=== PATIENT | female | born 1955 | race Caucasian/White ===

== ENCOUNTER → 2018-04-25 09:16 | Outpatient (CLI) | payer OTHER, SELFPAY ==
--- NOTE | 2018-04-25 | DI.US.S_ITS ---
PROCEDURE: US PELVIC COMPLETE INDICATIONS: IMPAIRED FASTING GLUCOSE,GOITER, VAGINAL FISTULA TECHNIQUE: Real-time scanning was performed of the pelvic organs, with image documentation. Additional endovaginal scanning was necessary due to incomplete visualization of the adnexal and endometrial structures by transabdominal scanning. COMPARISON: None. FINDINGS: Transabdominal scanning: Limited scanning through the kidneys shows no hydronephrosis. No pathologic free abdominal or pelvic fluid. Endovaginal scanning: Uterus: Uterus is normal in size at 8.4 x 2.5 x 3.3 cm. The endometrium measures 4.7 mm in combined thickness. There is a phlegmon fluid within the endometrial cavity. Multiple nabothian cysts are present with the largest one measuring 1.9 cm. Ovaries: Right ovary measures 2.3 x 1.9 x 2.1 cm. Left ovary measures 5.6 x 3.0 x 2.2 cm. There is a large cyst with internal septation measuring 5.6 x 3.0 x 3.2 cm. IMPRESSION: 1. Trace amount of fluid within the endometrial cavity. Endometrium thickness is within normal limits (4.7 mm in combined thickness). 2. There is a 5.6 x 3.0 x 3.2 cm complex cyst in the left ovary with internal septa. Differential diagnosis includes benign versus malignant ovarian neoplasm. Recommend gynecological follow up. 3. No pathological fluid in pelvis. Dictated by: Leonie Munguia M.D. on 04/25/2018 at 17:19 Approved by: Leonie Munguia M.D. on 04/25/2018 at 17:25
--- NOTE | 2018-04-25 | DI.US.S_ITS ---
PROCEDURE: US THYROID INDICATIONS: IMPAIRED FASTING GLUCOSE,GOITER, VAGINAL FISTULA TECHNIQUE: Real-time scanning was performed of the thyroid gland, with image documentation. COMPARISON: None. FINDINGS: Right: Thyroid lobe measures 5.1 x 2.2 x 2.4 cm, and is homogeneous in echotexture. Left: Thyroid lobe measures 3.6 x 1.4 x 1.1 cm, and is homogenous in echotexture. Isthmus: 2 mm thick. Nodule number: 1 Location: Right superior lobe Size: 1.1 x 0.8 x 1.1 cm. Composition: Solid Echogenicity: Hypoechoic Shape: wider than tall. Margins: Smooth Echogenic foci: None Total points: 4 ACR TI-RADS category: 4 Nodule number: 2 Location: Right middle lobe Size: 0.8 x 0.5 x 0.8 cm. Composition: Solid Echogenicity: Hypoechoic Shape: wider than tall. Margins: Smooth Echogenic foci: None Total points: 4 ACR TI-RADS category: 4 Nodule number: 3 Location: Right inferior lobe Size: 2.0 x 2.5 x 2.0 cm. Composition: Solid Echogenicity: Hypoechoic Shape: wider than tall. Margins: Smooth Echogenic foci: None Total points: 4 ACR TI-RADS category: 4 Nodule number: 4 Location: Left mid Size: 0.7 x 0.5 x 0.7 cm. Composition: Solid Echogenicity: Hypoechoic Shape: wider than tall. Margins: Smooth Echogenic foci: None Total points: 4 ACR TI-RADS category: 4 IMPRESSION: 1. Multiple lesions all category 4. 2. Lesions 2 and 4 are both below the threshold for followup as recommended below. 3. Lesion 3: FNA recommended. 4. Lesion one interval followup at one, 2, 3 and 5 years as below. ACR TI-RADS definitions and recommendations: TI-RADS 1 (benign): 0 points. FNA not needed. TI-RADS 2 (not suspicious): 2 points. FNA not needed. TI-RADS 3 (mildly suspicious): 3 points. * FNA if 2.5 cm or larger, follow up if 1.5 cm or larger (at 1, 3, and 5 years). TI-RADS 4 (moderately suspicious): 4-6 points. * FNA if 1.5 cm or larger, follow up if 1 cm or larger (at 1, 2, 3, and 5 years). TI-RADS 5 (highly suspicious): 7 points or more. * FNA if 1 cm or larger, follow up if 0.5 cm or larger (every year for 5 years). Dictated by: Coty Olvera M.D. on 04/25/2018 at 17:44 Approved by: Coty Olvera M.D. on 04/25/2018 at 17:48
== END ==
PROVIDERS: Visit Provider Internal Medicine
DX: N82.3 Fistula of vagina to large intestine (principal); N83.292 Other ovarian cyst, left side; N88.8 Other specified noninflammatory disorders of cervix uteri; R73.01 Impaired fasting glucose; E04.2 Nontoxic multinodular goiter
CPT/HCPCS: 76536; 76830; 76856

== ENCOUNTER → 2018-05-13 11:17 | Outpatient (CLI) | payer OTHER, SELFPAY ==
--- NOTE | 2018-05-13 | DI.MG.S_ITS ---
BILATERAL DIGITAL SCREENING MAMMOGRAM 3D/2D WITH CAD: 05/13/2018 CLINICAL: Routine screening. Comparison is made to exams dated: 04/23/2016 mammogram, 03/17/2015 mammogram, and 03/28/2013 mammogram - [facility]. There are scattered fibroglandular elements in both breasts. Current study was also evaluated with a Computer Aided Detection (CAD) system. No significant masses, calcifications, or other findings are seen in either breast. There has been no significant interval change. IMPRESSION: NEGATIVE There is no mammographic evidence of malignancy. A 1 year screening mammogram is recommended. This exam was interpreted at Station ID: [id number]. NOTE: For mammograms, a report in lay terms will be sent to the patient. Approximately 15% of breast malignancies will not be visualized mammographically. In the management of a palpable breast mass, a negative mammogram must not discourage biopsy of a clinically suspicious lesion. Electronically Signed By: Mikey brizuela/kai:05/15/2018 10:21:28 letter sent: Normal Exam ACR BI-RADS Category 1: Negative [id number]
== END ==
PROVIDERS: PCP Internal Medicine; Visit Provider Internal Medicine
DX: Z12.31 Encounter for screening mammogram for malignant neoplasm of breast (principal)
CPT/HCPCS: 77063; 77067

== ENCOUNTER → 2020-03-21 19:05 | Outpatient (ROUT) | payer MEDICARE, OTHER, SELFPAY ==
[2020-03-21 19:33] LABS: Add Manual Diff / Slide Review NO; Basophils Absolute Auto 100 /uL (0-100); Eosinophils Absolute Auto 200 /uL (0-450); Eosinophils Percent Auto 2.2 % (2-4); Hematocrit 45.1 % (36-46); Hemoglobin 15.3 g/dL (12.0-16.0); Lymphocytes Absolute Auto 2600 /uL (1100-4500); Lymphocytes Percent Auto 30.2 % (25-40); Mean Corpuscular HGB Conc 33.9 % (30-36); Mean Corpuscular Volume 94.5 fL (80-100); Monocytes Absolute Auto 800 /uL (0-900); Monocytes Percent Auto 9.3 % (3-14); Neutrophils Absolute Auto 4900 /uL (1500-7000); Neutrophils Percent Auto 57.3 % (50-75); Platelet Count 340 X10^3/uL (150-400); Red Blood Cell Count 4.77 X10^6/uL (4.0-5.2); Red Cell Distribution Width 13.1 % (11.6-14.8); White Blood Cell Count 8.5 X10^3/uL (4.5-11.0)
[2020-03-21 19:47] LABS: Aspartate Aminotransferase 55 IU/L (14-36); BUN Creatinine Ratio 21.1 (6-22); Blood Urea Nitrogen 12 mg/dL (7-17); Calcium 9.4 mg/dL (8.4-10.2); Carbon Dioxide 27 mmol/L (22-32); Chloride 104 mmol/L (98-107); Cholesterol 262 mg/dL (140-199); Estimated Glomerular Filt Rate > 60.0 mL/min (>60); Glucose 91 mg/dL (80-110); HDL Cholesterol 47 mg/dL (40-60); HEMOLYSIS < 15 (0-50); LDL Cholesterol Calculated 170 mg/dL (<100); Potassium 4.3 mmol/L (3.4-5.1); Sodium 135 mmol/L (137-145); Triglycerides 223 mg/dL (35-150)
[2020-03-21 19:49] LABS: Hemoglobin A1C% w Est Avg Glu 6.4 % (4.0-6.0)
[2020-03-21 20:15] LABS: TSH w/ Reflex to FT4 0.72 uIU/mL (0.47-4.68)
== END ==
PROVIDERS: PCP Internal Medicine; Visit Provider Internal Medicine
DX: I10 Essential (primary) hypertension (principal); E78.2 Mixed hyperlipidemia; R73.01 Impaired fasting glucose
CPT/HCPCS: 80048; 80061; 83036; 84443; 84450; 85025

== ENCOUNTER → 2020-04-09 10:00 | Outpatient (CLI) | payer MEDICARE, OTHER, SELFPAY ==
--- NOTE | 2020-04-09 | DI.US.S_ITS ---
PROCEDURE: US THYROID INDICATIONS: NONTOXIC GOITER TECHNIQUE: Real-time scanning was performed of the thyroid gland, with image documentation. COMPARISON: Outside Facility, RG, US RT THYROID BIOPSY, 03/31/2015, 15:16. [facility], US, US THYROID, 04/25/2018, 10:25. FINDINGS: Right: Thyroid lobe measures 5.2 x 3.0 x 2.2 cm, and is homogeneous in echotexture. Left: Thyroid lobe measures 4.7 x 1.2 x 1.3 cm, and is homogenous in echotexture. Isthmus: 3.8 mm thick. Nodule number: 1 Location: Right superior Size: 1.1 x 0.7 x 0.9 cm compared to 1.1 x 0.8 x 1.1 cm. Composition: Solid Echogenicity: Hypoechoic Shape: wider than tall. Margins: Smooth Echogenic foci: None Total points: 4 ACR TI-RADS category: 4 Nodule number: 2 Location: Right mid lobe Size: 0.7 x 0.4 x 0.6 cm compared to 0.8 x 0.5 x 0.8 cm. Composition: Solid Echogenicity: Hypoechoic Shape: wider than tall. Margins: Smooth Echogenic foci: None Total points: 4 ACR TI-RADS category: 4 Nodule number: 3 Location: Right inferior Size: 2.6 x 2.5 x 1.9 cm compared to 2.7 x 2.5 x 2.0 cm. Composition: Solid Echogenicity: Hypoechoic Shape: wider than tall. Margins: Smooth Echogenic foci: None Total points: 4 ACR TI-RADS category: 4 Nodule number: 4 Location: Left mid Size: 0.8 x 0.5 x 0.9 cm compared to 0.7 x 0.5 x 0.7 cm. Composition: Solid Echogenicity: Hypoechoic Shape: wider than tall. Margins: Smooth Echogenic foci: None Total points: 4 ACR TI-RADS category: 4 IMPRESSION: 1. Stable category 4 lesions compared to prior exam. It is noted the right inferior lesion was biopsied in 2015. Otherwise, recommend interval follow-up as below based on size. ACR TI-RADS definitions and recommendations: TI-RADS 1 (benign): 0 points. FNA not needed. TI-RADS 2 (not suspicious): 2 points. FNA not needed. TI-RADS 3 (mildly suspicious): 3 points. * FNA if 2.5 cm or larger, follow up if 1.5 cm or larger (at 1, 3, and 5 years). TI-RADS 4 (moderately suspicious): 4-6 points. * FNA if 1.5 cm or larger, follow up if 1 cm or larger (at 1, 2, 3, and 5 years). TI-RADS 5 (highly suspicious): 7 points or more. * FNA if 1 cm or larger, follow up if 0.5 cm or larger (every year for 5 years). Dictated by: Coty Olvera M.D. on 04/09/2020 at 13:17 Approved by: Coty Olvera M.D. on 04/09/2020 at 13:21
== END ==
PROVIDERS: PCP Internal Medicine; Referring Provider Internal Medicine; Visit Provider Internal Medicine
DX: E04.2 Nontoxic multinodular goiter (principal)
CPT/HCPCS: 76536

== ENCOUNTER → 2020-05-20 18:39 | Outpatient (ROUT) | payer MEDICARE, OTHER, SELFPAY ==
[2020-05-20 19:19] LABS: Add Manual Diff / Slide Review NO; Basophils Absolute Auto 100 /uL (0-100); Basophils Percent Auto 0.7 % (0-2); Eosinophils Absolute Auto 200 /uL (0-450); Hematocrit 44.3 % (36-46); Hemoglobin 15.4 g/dL (12.0-16.0); Lymphocytes Absolute Auto 2300 /uL (1100-4500); Lymphocytes Percent Auto 28.6 % (25-40); Mean Corpuscular HGB Conc 34.7 % (30-36); Mean Corpuscular Hemoglobin 33.1 PG (26-34); Mean Corpuscular Volume 95.4 fL (80-100); Monocytes Absolute Auto 700 /uL (0-900); Monocytes Percent Auto 8.9 % (3-14); Neutrophils Absolute Auto 4800 /uL (1500-7000); Neutrophils Percent Auto 58.8 % (50-75); Platelet Count 305 X10^3/uL (150-400); Red Blood Cell Count 4.64 X10^6/uL (4.0-5.2); Red Cell Distribution Width 13.2 % (11.6-14.8); White Blood Cell Count 8.1 X10^3/uL (4.5-11.0)
[2020-05-20 19:32] LABS: Prothrombin Time 11.5 SECONDS (10.1-12.7)
[2020-05-20 19:34] LABS: Alanine Aminotransferase 63 IU/L (<35); Albumin 4.2 g/dL (3.5-5.0); Albumin Globulin Ratio 1.6 (1.0-2.8); Alkaline Phosphatase 87 U/L (38-126); Aspartate Aminotransferase 48 IU/L (14-36); BUN Creatinine Ratio 19.4 (6-22); Bilirubin Total 0.4 mg/dL (0.2-1.3); Blood Urea Nitrogen 13 mg/dL (7-17); Calcium 9.8 mg/dL (8.4-10.2); Carbon Dioxide 26 mmol/L (22-32); Chloride 104 mmol/L (98-107); Estimated Glomerular Filt Rate > 60.0 mL/min (>60); Globulin 2.7 g/dL (1.7-4.1); Glucose 141 mg/dL (80-110); HEMOLYSIS < 15 (0-50); Iron 89 ug/dL (37-170); Potassium 4.5 mmol/L (3.4-5.1); Sodium 138 mmol/L (137-145); Total Protein 6.9 g/dL (6.3-8.2)
[2020-05-20 19:47] LABS: Percent Iron Saturation 30 % (15-50); Total Iron Binding Capacity 292 ug/dL (265-497); Transferrin 248 mg/dL (206-381)
== END ==
PROVIDERS: PCP Internal Medicine; Visit Provider Internal Medicine
DX: D50.9 Iron deficiency anemia, unspecified (principal); R39.9 Unspecified symptoms and signs involving the genitourinary system; M19.90 Unspecified osteoarthritis, unspecified site; D68.9 Coagulation defect, unspecified
CPT/HCPCS: 80053; 83540; 83550; 85025; 85610; 87086

== ENCOUNTER 2021-06-30 15:09 | Emergency (ER) | payer MEDICARE, OTHER, SELFPAY ==
[2021-06-30] VITALS (35 sets, daily range): BP systolic 138–250; BP diastolic 64–114; PULSE 58–77; RESP 17–39; TEMP 36.4; O2SAT 92–100; BMI 42.9
--- NOTE | 2021-06-30 15:26 | DI.RAD.S_ITS ---
PROCEDURE: XR HUMERUS LT 2V INDICATIONS: direct blow TECHNIQUE: 2 views of the humerus were acquired. COMPARISON: None. FINDINGS: Bones: There is anterior dislocation of the glenohumeral joint. The humeral head appears to be infected at the anteroinferior glenoid. No definite displaced fracture is seen. Staj-us-jjogrhwr degenerative changes of the acromioclavicular joint. No suspicious bony lesions. Soft tissues: No suspicious soft tissue calcifications. IMPRESSION: Anterior dislocation of the glenohumeral joint. Recommend correlation with postreduction radiographs. Dictated by: Spike Lan M.D. on 06/30/2021 at 16:13 Approved by: Spike Lan M.D. on 06/30/2021 at 16:14
[2021-06-30] MEDS: ONDANSETRON 4 MG ODT SL (15:36)
[2021-06-30] MEDS: OXYCODONE/ACETAMINOPHEN 5/325 TABLET 2 TAB PO (15:36)
--- NOTE | 2021-06-30 16:47 | ED_ITS ---
HPI - Extremity Injury (Upper) <Miguel Lovell PA-C - Last Filed: 06/30/21 18:04> General Chief Complaint: Extremity Injury, Upper Stated Complaint: lt shoulder injury s/p fall Time Seen by Provider: 06/30/21 16:03 Source: patient Mode of arrival: Wheelchair History of Present Illness HPI narrative: Patient is a 66-year-old female who presents to the ED complaining of left shoulder pain. She states that she fell while outside and landed on her left shoulder. She has had extreme pain and difficulty with mobility since then. Incident happened an hour prior to arrival. No reported loss conscious no other complaint reported x-ray of the left shoulder was performed and was identified as dislocation. Related Data Home Medications Medication Instructions Recorded Confirmed Saccharomyces boulardii 250 mg 250 mg PO BID 05/21/20 04/29/21 capsule (Daily Probiotic (S. boulardii)) dorzolamide 22.3 mg-timolol 6.8 1 drp EYE-BOTH BID 05/21/20 04/29/21 mg/mL eye drops multivitamin 1 tab PO DAILY 05/21/20 04/29/21 omega-3 fatty acids 1,250 mg 2,500 mg PO DAILY 05/21/20 04/29/21 capsule ResMed AirSense 10 Auto 04/29/21 04/29/21 Allergies Allergy/AdvReac Type Severity Reaction Status Date / Time Penicillins Allergy Mild Verified 04/29/21 10:45 Review of Systems <Miguel Lovell PA-C - Last Filed: 06/30/21 18:04> Review of Systems ROS Unobtainable: All systems reviewed & are unremarkable except as noted in HPI and below Constitutional Constitutional: Denies chills, Denies fatigue, Denies fever(s), Denies frequent falls, Denies lethargy and Denies weakness Eyes Eyes: Denies change in vision, Denies eye discharge, Denies irritation and Denies loss of vision ENT Ears, Nose, Mouth, and Throat: Denies change in voice, Denies dizziness, Denies neck pain, Denies sore throat and Denies throat swelling Cardiovascular Cardiovascular: Denies chest pain, Denies irregular heart rhythm, Denies lightheadedness, Denies palpitations, Denies dyspnea, Denies dyspnea on exertion and Denies orthopnea Respiratory Respiratory: Denies cough, Denies dyspnea, Denies dyspnea on exertion and Denies wheezing Gastrointestinal Gastrointestinal: Denies abdominal pain, Denies change in bowel habits, Denies diarrhea, Denies nausea and Denies vomiting Genitourinary Genitourinary: Denies hematuria, Denies flank pain, Denies urinary incontinence and Denies urinary urgency Musculoskeletal Musculoskeletal: Denies back pain, Reports deformity, Reports arthralgias, Denies muscle weakness, Denies neck pain, Denies numbness and Denies tingling Integumentary/Breasts Skin/Breast: Denies pruritus, Denies erythema, Denies rash and Denies wounds Neurologic Neurologic: Denies behavioral changes, Denies confusion, Denies dizziness, Denies frequent falls, Denies loss of vision, Denies numbness, Denies tingling and Denies weakness Psychiatric Psychiatric: Denies anxiety, Denies behavioral changes, Denies confusion, Denies depression, Denies homicidal ideation and Denies suicidal ideation Endocrine Endocrine: Denies fatigue, Denies flushing and Denies palpitations Hematologic/Lymphatic Hematologic/Lymphatic: Denies easy bruising Allergic/Immunologic Allergic/Immunologic: Denies urticaria, Denies throat swelling and Denies wheezing Patient History <Miguel Lovell PA-C - Last Filed: 06/30/21 18:04> Medical History Multinodular non-toxic goiter Obesity (BMI 30-39.9) (Unknown) Obstructive sleep apnea, adult (~2010) Osteoarthritis, hip, bilateral Surgical History History of right hip replacement Family History Mother Hypertension Heart disease Brother Sleep apnea Hypertension Social History Smoking Status: Never smoker Smoking Status: Never smoker Substance Use Type: does not use Exam <Miguel Lovell PA-C - Last Filed: 06/30/21 18:04> Initial Vital Signs Initial Vital Signs: Vital Signs Temperature 97.6 F 06/30/21 15:23 Pulse Rate 65 06/30/21 15:23 Respiratory Rate 24 06/30/21 15:23 Blood Pressure 224/99 H 06/30/21 15:23 Pulse Oximetry 99 06/30/21 15:23 Oxygen Delivery Method 06/30/21 15:23 Const General: cooperative, healthy appearing, comfortable and well developed Nutritional Appearance: average body habitus and well nourished Orientation: Orientation [facility] Head: normal to inspection, normocephalic and atraumatic Ears: hearing grossly normal bilaterally and external ears normal Nose: external nose normal and nares normal Face and sinus: normal facial exam Mouth: oral mucosae normal Teeth and gingiva: dentition normal Resp Effort & Inspection: normal respiratory effort and able to speak in complete sentences Auscultation: clear to auscultation bilaterally Extrem Left upper extremity: shoulder/upper arm Details: abnormal ROM (Unable to externally rotate) <Blaine Anderson MD - Last Filed: 08/07/21 01:47> Initial Vital Signs Initial Vital Signs: Vital Signs Temperature 97.6 F 06/30/21 15:23 Pulse Rate 65 06/30/21 15:23 Respiratory Rate 24 06/30/21 15:23 Blood Pressure 224/99 H 06/30/21 15:23 Pulse Oximetry 99 06/30/21 15:23 Oxygen Delivery Method 06/30/21 15:23 Procedures <Miguel Lovell PA-C - Last Filed: 06/30/21 18:04> Orthopedic Joint Reduction Joint #1: Time of procedure: 17:30 Time Out Performed: Yes Side: left Joint Reduction Location: shoulder Analgesia: procedural sedation Shoulder Technique Used (if applicable): traction/counter-traction Technique used: traction/counter-traction Post-reduction neuro exam: intact and no change Post-reduction vascular: intact and no change Post Reduction X-Ray Obtained: Yes Post Reduction X-Ray Results: reduced Splint Applied: Yes Patient Tolerated Procedure: Well and No complications Procedural Sedation Time of procedure: 17:18 Consent signed: Yes Time out performed: Yes Indication: fracture/dislocation reduction ASA Class: I Mallampati Airway Classification: Class I Time of Last PO Intake: 11:00 Preparation: laboratory monitor applied, pulse oximeter, capnometry used, supplemental O2 applied, reversal agents at bedside, suction/airway equipment at bedside and IV secured IV Etomidate dose (mg): 20 ED Sedation Level: Moderate (Concious) Patient Tolerated Procedure: Well and No complications Complications: none Course <Miguel Lovell PA-C - Last Filed: 06/30/21 18:04> Orders Ordered: Discontinued Medications Etomidate (Etomidate 2 Mg/Ml 10 Ml Vial) 11.3 mg 0.1 mg/kg (11.3 mg) IV NOW ONE Stop: 06/30/21 16:47 Last Admin: 06/30/21 17:36 Dose: 11.3 mg Documented By: NR Sodium Chloride (Normal Saline 0.9%) 1,000 mls @ 150 mls/hr IV CONT KALYANI Last Admin: 06/30/21 17:11 Dose: 150 mls/hr Documented By: NR Ondansetron HCl (Ondansetron 4 Mg Odt) 4 mg SL NOW ONE Stop: 06/30/21 15:34 Last Admin: 06/30/21 15:36 Dose: 4 mg Documented By: NORTH Oxycodone/Acetaminophen (Oxycodone/Acetaminophen 5/325 Tablet) 2 tab PO NOW ONE Stop: 06/30/21 15:32 Last Admin: 06/30/21 15:36 Dose: 2 tab Documented By: NORTH Vital Signs Vital signs: Vital Signs - 8 hr 06/30/21 15:23 06/30/21 16:07 06/30/21 16:08 Temperature 97.6 F Pulse Rate 65 63 63 Respiratory Rate 24 Blood Pressure 224/99 H 249/111 H Pulse Oximetry 99 98 98 06/30/21 16:10 06/30/21 16:18 06/30/21 16:20 Temperature Pulse Rate 61 61 61 Respiratory Rate Blood Pressure Pulse Oximetry 99 99 100 06/30/21 16:25 06/30/21 16:30 06/30/21 16:35 Temperature Pulse Rate 60 61 60 Respiratory Rate Blood Pressure Pulse Oximetry 100 99 100 06/30/21 16:40 06/30/21 16:45 06/30/21 16:50 Temperature Pulse Rate 60 62 58 L Respiratory Rate Blood Pressure Pulse Oximetry 100 99 100 06/30/21 16:55 06/30/21 17:00 06/30/21 17:02 Temperature Pulse Rate 64 70 64 Respiratory Rate 28 H 35 H 26 H Blood Pressure 250/114 H Pulse Oximetry 100 99 99 06/30/21 17:05 06/30/21 17:09 06/30/21 17:10 Temperature Pulse Rate 62 65 65 Respiratory Rate 33 H 30 H 30 H Blood Pressure 244/108 H Pulse Oximetry 100 100 100 06/30/21 17:13 06/30/21 17:15 06/30/21 17:20 Temperature Pulse Rate 61 61 65 Respiratory Rate 22 29 H 33 H Blood Pressure 244/108 H Pulse Oximetry 100 100 100 06/30/21 17:21 06/30/21 17:25 06/30/21 17:30 Temperature Pulse Rate 71 77 76 Respiratory Rate 18 39 H 26 H Blood Pressure 238/108 H 217/104 H Pulse Oximetry 100 93 97 06/30/21 17:33 06/30/21 17:35 06/30/21 17:40 Temperature Pulse Rate 74 68 Respiratory Rate 18 21 32 H Blood Pressure 188/78 H Pulse Oximetry 92 94 06/30/21 17:41 06/30/21 17:45 Temperature Pulse Rate 69 68 Respiratory Rate 32 H 31 H Blood Pressure 150/65 H 150/68 H Pulse Oximetry 97 95 <Blaine Anderson MD - Last Filed: 08/07/21 01:47> Orders Ordered: Discontinued Medications Etomidate (Etomidate 2 Mg/Ml 10 Ml Vial) 11.3 mg 0.1 mg/kg (11.3 mg) IV NOW ONE Stop: 06/30/21 16:47 Last Admin: 06/30/21 17:36 Dose: 11.3 mg Documented By: LARISSA Sodium Chloride (Normal Saline 0.9%) 1,000 mls @ 150 mls/hr IV CONT KALYANI Last Admin: 06/30/21 17:11 Dose: 150 mls/hr Documented By: LARISSA Ondansetron HCl (Ondansetron 4 Mg Odt) 4 mg SL NOW ONE Stop: 06/30/21 15:34 Last Admin: 06/30/21 15:36 Dose: 4 mg Documented By: NORTH Oxycodone/Acetaminophen (Oxycodone/Acetaminophen 5/325 Tablet) 2 tab PO NOW ONE Stop: 06/30/21 15:32 Last Admin: 06/30/21 15:36 Dose: 2 tab Documented By: NORTH Vital Signs Vital signs: Vital Signs - 8 hr 06/30/21 15:23 06/30/21 16:07 06/30/21 16:08 Temperature 97.6 F Pulse Rate 65 63 63 Respiratory Rate 24 Blood Pressure 224/99 H 249/111 H Pulse Oximetry 99 98 98 06/30/21 16:10 06/30/21 16:18 06/30/21 16:20 Temperature Pulse Rate 61 61 61 Respiratory Rate Blood Pressure Pulse Oximetry 99 99 100 06/30/21 16:25 06/30/21 16:30 06/30/21 16:35 Temperature Pulse Rate 60 61 60 Respiratory Rate Blood Pressure Pulse Oximetry 100 99 100 06/30/21 16:40 06/30/21 16:45 06/30/21 16:50 Temperature Pulse Rate 60 62 58 L Respiratory Rate Blood Pressure Pulse Oximetry 100 99 100 06/30/21 16:55 06/30/21 17:00 06/30/21 17:02 Temperature Pulse Rate 64 70 64 Respiratory Rate 28 H 35 H 26 H Blood Pressure 250/114 H Pulse Oximetry 100 99 99 06/30/21 17:05 06/30/21 17:09 06/30/21 17:10 Temperature Pulse Rate 62 65 65 Respiratory Rate 33 H 30 H 30 H Blood Pressure 244/108 H Pulse Oximetry 100 100 100 06/30/21 17:13 06/30/21 17:15 06/30/21 17:20 Temperature Pulse Rate 61 61 65 Respiratory Rate 22 29 H 33 H Blood Pressure 244/108 H Pulse Oximetry 100 100 100 06/30/21 17:21 06/30/21 17:25 06/30/21 17:30 Temperature Pulse Rate 71 77 76 Respiratory Rate 18 39 H 26 H Blood Pressure 238/108 H 217/104 H Pulse Oximetry 100 93 97 06/30/21 17:33 06/30/21 17:35 06/30/21 17:40 Temperature Pulse Rate 74 68 Respiratory Rate 18 21 32 H Blood Pressure 188/78 H Pulse Oximetry 92 94 06/30/21 17:41 06/30/21 17:45 Temperature Pulse Rate 69 68 Respiratory Rate 32 H 31 H Blood Pressure 150/65 H 150/68 H Pulse Oximetry 97 95 MDM - Extremity Injury (Upper) <Miguel Lovell PA-C - Last Filed: 06/30/21 18:04> Differential Diagnosis Differential diagnosis: Likely dislocation of shoulder Lab Data Labs: Point of Care Testing Test Results Negative Imaging Data Extremity x-ray #1: Radiologist's Impression: [address] [address] XRay Report Signed Patient: Kanchan Cadet MR#: [id number] : 1955 Acct:[id number] Age/Sex: 66 / F Date of Service: 06/30/21 Loc: ED Accession Number: [id number] ?? Procedure: XR humerus LT 2V Ordering Provider: Blaine Anderson MD PROCEDURE:? XR HUMERUS LT 2V ? INDICATIONS:? direct blow ? TECHNIQUE:? 2 views of the humerus were acquired.? ? COMPARISON:? None. ? FINDINGS:? ? Bones:? There is anterior dislocation of the glenohumeral joint.? The humeral head appears to be infected at the anteroinferior glenoid.? No definite displaced fracture is seen.? Hqru-ps-rsufvzaj degenerative changes of the acromioclavicular joint.? No suspicious bony lesions.? ? Soft tissues:? No suspicious soft tissue calcifications.? ? IMPRESSION:? Anterior dislocation of the glenohumeral joint.? Recommend correlation with postreduction radiographs. ? ? Dictated by: Spike Lan M.D. on 06/30/2021 at 16:13 ? ? Approved by: Spike Lan M.D. on 06/30/2021 at 16:14?? Extremity x-ray #2: Radiologist's Impression: [address] [address] XRay Report Signed Patient: Kanchan Cadet MR#: [id number] : 1955 Acct:[id number] Age/Sex: 66 / F Date of Service: 06/30/21 Loc: ED Accession Number: [id number] ?? Procedure: XR shoulder LT min 2V Ordering Provider: Miguel Lovell P.A-C PROCEDURE:? XR SHOULDER LT MIN 2V ? INDICATIONS:? post reduction ? TECHNIQUE:? 2 views of the shoulder were acquired.? ? COMPARISON:? [facility], , XR HUMERUS LT 2V, 06/30/2021, 15:16. ? FINDINGS:? ? Bones:? There is been interval reduction with now good anatomic alignment of previous dislocation.? No distinct fracture is identified. ? Soft tissues:? No suspicious soft tissue calcifications.? ? IMPRESSION:? Interval reduction of previous anterior dislocation without visualized fracture. ? ? Dictated by: Coty Olvera M.D. on 06/30/2021 at 16:44? ?? [facility] Narrative Medical decision making narrative: Patient was evaluated today for a left shoulder pain which was found to be dislocated without evidence of fracture. Patient underwent conscious sedation with counter traction applied and reduction was achieved of the left shoulder. Post reduction x-ray shows good placement with arthritic changes. Patient was placed in a shoulder immobilizer. Patient will be monitored and wants regain consciousness and vital signs remained stable patient will be discharged home. Patient should follow-up with orthopedic for further evaluation and treatment. <Blaine Anderson MD - Last Filed: 08/07/21 01:47> Lab Data Labs: Point of Care Testing Test Results Negative Discharge Plan Departure Patient Disposition: Home Clinical Impression: Dislocation of shoulder region Instructions: DI for Shoulder Dislocation Activity Restrictions/Additional Instructions: You were seen today for your left shoulder dislocation. We were successful in putting her shoulder back in place however due to the extent of the injuries we would recommend that you follow-up with an system support specialist just to monitor the shoulder. You can keep the left arm in the sling for comfort and remove as needed for bathing or showering or for sleeping. The packing he can return to the ED if symptoms seem to worsen or your pain gets worse. Prescriptions: No Action dorzolamide-timolol 22.3-6.8 mg/mL drops 1 drp EYE-BOTH BID multivitamin Tablet 1 tab PO DAILY Saccharomyces boulardii [Daily Probiotic (S. boulardii)] 250 mg capsule 250 mg PO BID omega-3 fatty acids 1,250 mg capsule 2,500 mg PO DAILY (DME) ResMed AirSense 10 Auto See Rx Instructions .ROUTE .MEDSUPPLY Rx Instructions: CPAP Min: 10 Max: 14 DME: [facility] Referrals: Gilberto Vegas MD [Primary Care Provider] - <Blaine Anderson MD - Last Filed: 08/07/21 01:47> Cosign ED Attending Cosignature Attestation: I was immediately available in the department for consultation. ?This documentation has been reviewed and I agree with assessment and plan. Supervised by Blaine Anderson MD
[2021-06-30] MEDS: SODIUM CHLORIDE 0.9% 1,000 ML 150 ML IV (17:11)
--- NOTE | 2021-06-30 17:32 | DI.RAD.S_ITS ---
PROCEDURE: XR SHOULDER LT MIN 2V INDICATIONS: post reduction TECHNIQUE: 2 views of the shoulder were acquired. COMPARISON: , [facility], XR HUMERUS LT 2V, 06/30/2021, 15:16. FINDINGS: Bones: There is been interval reduction with now good anatomic alignment of previous dislocation. No distinct fracture is identified. Soft tissues: No suspicious soft tissue calcifications. IMPRESSION: Interval reduction of previous anterior dislocation without visualized fracture. Dictated by: Coty Olvera M.D. on 06/30/2021 at 16:44 Approved by: Coty Olvera M.D. on 06/30/2021 at 16:45
[2021-06-30] MEDS: ETOMIDATE 2 MG/ML 10 ML VIAL 11.3 MG IV (17:36)
== END 2021-06-30 18:31 | disposition home or self-care (01) ==
PROVIDERS: Emergency Provider Physician Assistant; PCP Internal Medicine
DX: S43.015A Anterior dislocation of left humerus, initial encounter (principal); W18.30XA Fall on same level, unspecified, initial encounter
CPT/HCPCS: 23650; 73030; 73060; 99152; 99284; 99285

== ENCOUNTER → 2021-07-15 15:50 | Outpatient (CLI) | payer MEDICARE, OTHER, SELFPAY ==
--- NOTE | 2021-07-15 | DI.MRI.S_ITS ---
PROCEDURE: MR SHOULDER LT WO CON INDICATIONS: Anterior dislocation of left humerus, initial encounter TECHNIQUE: Noncontrast oblique coronal T2 fast spin echo with fat saturation, oblique sagittal T1 spin echo and T2 fast spin echo with fat saturation, axial T1 spin echo and T2 fast spin echo with fat saturation through the shoulder. COMPARISON: [facility], CR, XR SHOULDER LT MIN 2V, 06/30/2021, 17:31. FINDINGS: Image quality: Excellent. Rotator cuff: There is full-thickness tearing of the supraspinatus and infraspinatus tendons with proximal tendon retraction measuring up to 4.8 cm, beyond the level of the glenoid rim. There is moderate atrophy and grade 2-3 fatty infiltration of the supraspinatus and infraspinatus muscles. Mild tendinosis of the infraspinatus tendon is seen. There is full-thickness tearing of the subscapularis tendon. Portions of the tendon appear to be retracted by up to 1.2 cm. There is grade 2 fatty infiltration of the superior subscapularis muscle. Mild edema within the medial subscapularis muscle may indicate a low-grade strain. Bones and bursae: No acute trabecular bone injury. The humeral head is high riding and abuts the undersurface of the acromion with mild degenerative changes at the acromial undersurface. Areas of high-grade and full-thickness cartilage loss are seen in both sides of the glenohumeral joint and there are small marginal osteophytes. Moderate degenerative changes are seen at the acromioclavicular joint with marginal osteophyte formation and mild subchondral edema. A small amount of subacromial/subdeltoid bursal fluid is seen communicating with the glenohumeral joint space. Capsule and soft tissues: There is mild diffuse labral degeneration. There is medial subluxation of the biceps long head tendon, located along the anterior aspect of the glenohumeral joint line. Biceps long head tendinosis is also noted. There is fatty infiltration of the rotator interval. The inferior glenohumeral ligaments are indistinct, especially at the midportion and near the humeral attachment. There is increased T2 signal within the axillary recess. IMPRESSION: 1. Full-thickness tearing of the supraspinatus and infraspinatus tendons with proximal tendon retraction beyond the level of the glenoid rim, measuring up to 4.8 cm. There is moderate atrophy and grade 2-3 fatty infiltration of the supraspinatus and infraspinatus muscles. The humeral head is high riding and abuts the undersurface of the acromion. 2. Full-thickness tearing of the subscapularis tendon with proximal retraction of portions of the tendon by up to 1.2 cm. Grade 2 fatty infiltration of the superior subscapularis muscle. 3. Tendinosis of the distal teres minor tendon. 4. Medial subluxation of the biceps long head tendon, located anterior to the glenohumeral joint line. There is superimposed biceps tendinosis. 5. Glenohumeral osteoarthrosis with areas of high-grade and full-thickness cartilage loss and marginal osteophyte formation. Circumferential labral degeneration. 6. Moderate acromioclavicular joint osteoarthrosis. 7. Inferior glenohumeral ligament fibers are not well seen and there is fluid within the axillary recess. Findings are suspicious for a prior capsular injury. 8. Subacromial/subdeltoid bursal fluid communicates with the glenohumeral joint space. Dictated by: Spike Lan M.D. on 07/16/2021 at 9:49 Approved by: Spike Lan M.D. on 07/16/2021 at 10:02
== END ==
PROVIDERS: PCP Internal Medicine; Referring Provider Physician Assistant; Visit Provider Physician Assistant
DX: S43.015A Anterior dislocation of left humerus, initial encounter (principal); M75.122 Complete rotator cuff tear or rupture of left shoulder, not specified as traumatic; S46.112A Strain of muscle, fascia and tendon of long head of biceps, left arm, initial encounter; M19.012 Primary osteoarthritis, left shoulder
CPT/HCPCS: 73221

== ENCOUNTER → 2021-10-15 06:58 | Outpatient (CLI) | payer MEDICARE, OTHER, SELFPAY ==
--- NOTE | 2021-10-15 07:00 | DI.ECHO.S_ITS ---
[place] +---------+ [facility] +---------+ : : [address] : : : : [id number] : : : : Phone: [phone]+ Echocardiogram Report + + :Name: BHAVANI NORMAN Study Date: 10/15/2021 Height: 64 in : :[facility] ReadingLocation: Weight: 245 lb : : Gender: Female BSA: 2.1 m2 : :: 1955 Age: 66 yrs BP: 172/88 mmHg: :Reason For Study: Abnormal ECG : :Ordering Physician: IZA, : :ORI Performed By: Isaak Vargas : :Referring: ORI COUCH : + + Interpretation Summary The left ventricle is normal in size and wall thickness. The ejection fraction is estimated to be 60-65%. MV E/A: 1.0 Med Peak E' Lino: 7.2 cm/sec E/E' med: 16.2. Suspect elevated filling pressure. The right ventricle is normal in size and function. No significant valvular pathology. The IVC is of normal diameter and collapses greater than 50% with a sniff. This suggests a low right atrial pressure of 3 mm Hg. Procedure: A two-dimensional transthoracic echocardiogram with color flow and Doppler was performed. The study quality was technically adequate. There is no prior echocardiogram noted for this patient. The patient was in normal sinus rhythm during the exam. Left Ventricle: The left ventricle is normal in size and wall thickness. There is no thrombus. Left ventricular systolic function is normal. The ejection fraction is estimated to be 60-65%. There are no focal wall motion abnormalities. MV E/A: 1.0 Med Peak E' Lino: 7.2 cm/sec E/E' med: 16.2. Suspect elevated filling pressure. Right Ventricle: The right ventricle is normal in size and function. Atria: Both atria are normal in size. The interatrial septum grossly appears intact with no obvious evidence for an atrial septal defect. The thickening of interatrial septum suggests lipomatous hypertrophy. Mitral Valve: There is mild mitral annular calcification. There is no mitral regurgitation noted. Aortic Valve: The aortic valve is trileaflet. The aortic valve opens well. The aortic valve is slightly calcified. There is no aortic valve stenosis. No aortic regurgitation is present. Tricuspid Valve: The tricuspid valve is normal in structure and function. There is trace tricuspid regurgitation. Pulmonary artery pressures cannot be estimated because of the lack of a measurable TR jet velocity. Pulmonic Valve: The pulmonic valve is not well seen, but is grossly normal. There is no pulmonic valvular regurgitation. Great Vessels: The aortic root is normal size. The dimensions of the ascending aorta are normal. The IVC is of normal diameter and collapses greater than 50% with a sniff. This suggests a low right atrial pressure of 3 mm Hg. Pericardium/ Pleura There is no pericardial effusion. There is an anterior echo-free space consistent with a fat pad. There is no pleural effusion. MMode/2D Measurements & Calculations LVIDd: 5.0 cm LVOT diam: 1.8 cm LVIDs: 3.3 cm Ao root diam: 2.5 cm FS: 34.0 % asc Aorta Diam: 3.1 cm IVSd: 0.90 cm LVPWd: 0.90 cm LV lovell. diameter/BSA (cm/m^2): 2.3 LV sys. diameter/BSA (cm/m^2): 1.5 LA dimension: 3.8 cm RA long axis: 5.6 cm LA A2 area: 18.6 cm2 IVC diam: 2.0 cm LA A4 area: 17.2 cm2 LA length (vol): 5.8 cm LA vol: 47.0 ml LA vol index: 22.0 ml/m2 TAPSE_phl: 2.4 cm Doppler Measurements & Calculations Ao V2 max: 202.0 cm/sec LVOT Max Lino: 143.0 cm/sec Ao V2 mean: 136.0 cm/sec LV V1 max P.2 mmHg Ao max P.0 mmHg LV V1 VTI: 36.7 cm Ao mean P.0 mmHg LEATHA(I,D): 2.0 cm2 Ao V2 VTI: 47.4 cm LEATHA(V,D): 1.8 cm2 sev ratio: 0.77 LEATHA indexed to BSA (cm^2/m^2): 0.92 MV E max lino: 116.0 cm/sec SV(LVOT): 93.4 ml MV A max lino: 111.0 cm/sec MV E/A: 1.0 Med Peak E' Lino: 7.2 cm/sec E/E' med: 16.2 Lat Peak E' Lino: 9.5 cm/sec E/E' lat: 12.2 E/e' average: 14.2 MV dec time: 0.23 sec AV VR_phl: 0.71 MV P1/2t-pr_phl: 68.0 msec LEATHA(VTI)/BSA_phl: 0.92 Reading Physician:09:41 AM
== END ==
PROVIDERS: PCP Internal Medicine; Referring Provider Internal Medicine; Visit Provider Internal Medicine
DX: R94.31 Abnormal electrocardiogram [ECG] [EKG] (principal)
CPT/HCPCS: 93306

== ENCOUNTER → 2022-03-04 09:16 | Outpatient (CLI) | payer MEDICARE, OTHER, SELFPAY ==
[2022-03-04 10:09] LABS: Hematocrit 44.3 % (36-46); Hemoglobin 14.9 g/dL (12.0-16.0); Mean Corpuscular HGB Conc 33.6 % (30-36); Mean Corpuscular Hemoglobin 32.1 PG (26-34); Mean Corpuscular Volume 95.4 fL (80-100); Platelet Count 298 X10^3/uL (150-400); Red Blood Cell Count 4.64 X10^6/uL (4.0-5.2); Red Cell Distribution Width 13.7 % (11.6-14.8); White Blood Cell Count 7.3 X10^3/uL (4.5-11.0)
[2022-03-04 10:27] LABS: Hemoglobin A1C% w Est Avg Glu 6.1 % (4.0-6.0)
[2022-03-04 10:40] LABS: Alanine Aminotransferase 72 IU/L (<35); Albumin 4.3 g/dL (3.5-5.0); Albumin Globulin Ratio 1.4 (1.0-2.8); Alkaline Phosphatase 100 U/L (38-126); Aspartate Aminotransferase 54 IU/L (14-36); BUN Creatinine Ratio 20.3 (6-22); Bilirubin Total 0.7 mg/dL (0.2-1.3); Blood Urea Nitrogen 13 mg/dL (7-17); Calcium 9.1 mg/dL (8.4-10.2); Carbon Dioxide 25 mmol/L (22-32); Chloride 103 mmol/L (98-107); Cholesterol 259 mg/dL (140-199); Estimated Glomerular Filt Rate > 60 mL/min (>60); Glucose 115 mg/dL (80-110); HDL Cholesterol 48 mg/dL (40-60); HEMOLYSIS < 15 (0-50); LDL Cholesterol Calculated 158 mg/dL (<100); Potassium 4.4 mmol/L (3.4-5.1); Sodium 136 mmol/L (137-145); Total Protein 7.3 g/dL (6.3-8.2); Triglycerides 266 mg/dL (35-150)
[2022-03-04 13:55] LABS: TSH w/ Reflex to FT4 1.33 uIU/mL (0.47-4.68)
[2022-03-05 09:27] LABS: HBsAg Screen Negative (Negative); Hepatitis A Antibody IgM Negative (Negative); Hepatitis B Core Antibody IgM Negative (Negative); Hepatitis C Antibody <0.1 s/co ratio (0.0-0.9)
== END ==
PROVIDERS: PCP Internal Medicine; Referring Provider Internal Medicine; Visit Provider Internal Medicine
DX: E04.1 Nontoxic single thyroid nodule (principal); R73.01 Impaired fasting glucose; E78.2 Mixed hyperlipidemia; I10 Essential (primary) hypertension; R79.89 Other specified abnormal findings of blood chemistry
CPT/HCPCS: 80053; 80061; 80074; 83036; 84443; 85027

== ENCOUNTER → 2022-03-24 14:05 | Outpatient (CLI) | payer MEDICARE, OTHER, SELFPAY ==
--- NOTE | 2022-03-24 14:09 | DI.US.S_ITS ---
PROCEDURE: US THYROID INDICATIONS: thyroid nodules TECHNIQUE: Real-time scanning was performed of the thyroid gland, with image documentation. COMPARISON: [facility], [place], US THYROID, 04/25/2018, 10:25. Outside Facility, [place], US RT THYROID BIOPSY, 03/31/2015, 15:16. [facility], [place], US THYROID, 04/09/2020, 10:44. FINDINGS: Right: Thyroid lobe measures 5.2 x 2.8 x 1.6 cm, and contains multiple nodules. Left: Thyroid lobe measures 4.9 x 1.6 x 1.4 cm, and contains a nodule Isthmus: 2 mm Nodule number: 1 Location: Right lower pole Size: 2.4 x 2.4 x 2.2 cm, previously 2.6 x 2.5 x 1.9 cm. Composition: Solid Echogenicity: Hypoechoic Shape: wider than tall. Margins: Smooth Echogenic foci: None Total points: 4 ACR TI-RADS category: Moderately suspicious Nodule number: 2 Location: Right middle pole Size: 0.8 x 0.5 x 0.7 cm, previously 0.7 x 0.4 x 0.6 cm. Composition: Predominantly solid Echogenicity: Hypoechoic Shape: wider than tall. Margins: Smooth Echogenic foci: Non Total points: 4 ACR TI-RADS category: Moderately suspicious Nodule number: 3 Location: Right upper pole Size: 1.3 x 0.7 x 1.1 cm, previously 1.1 x 0.7 x 0.9 cm. Composition: Solid Echogenicity: Isoechoic Shape: wider than tall. Margins: Smooth Echogenic foci: None Total points: 3 ACR TI-RADS category: Mildly suspicious Nodule number: 4 Location: Left middle pole Size: 0.8 x 0.5 x 0.6 cm, previously 0.8 x 0.5 x 0.9 cm. Composition: Predominantly solid Echogenicity: Hypoechoic Shape: wider than tall. Margins: Smooth Echogenic foci: None Total points: 4 ACR TI-RADS category: Moderately suspicious IMPRESSION: There are multiple thyroid nodules present. The largest single nodule is stable since the most recent prior study, and is noted to have been biopsied in the past, in 2016. Further workup would depend on the previous pathology report. The other nodules are not of sufficient size and appearance to require FNA at this time. ACR TI-RADS definitions and recommendations: TI-RADS 1 (benign): 0 points. FNA not needed. TI-RADS 2 (not suspicious): 2 points. FNA not needed. TI-RADS 3 (mildly suspicious): 3 points. * FNA if 2.5 cm or larger, follow up if 1.5 cm or larger (at 1, 3, and 5 years). TI-RADS 4 (moderately suspicious): 4-6 points. * FNA if 1.5 cm or larger, follow up if 1 cm or larger (at 1, 2, 3, and 5 years). TI-RADS 5 (highly suspicious): 7 points or more. * FNA if 1 cm or larger, follow up if 0.5 cm or larger (every year for 5 years). Dictated by: Ba Hernandez M.D. on 03/24/2022 at 17:43 Approved by: Ba Hernandez M.D. on 03/24/2022 at 17:51
--- NOTE | 2022-03-24 14:10 | DI.MG.S_ITS ---
BILATERAL DIGITAL SCREENING MAMMOGRAM 3D/2D WITH CAD: 03/24/2022 CLINICAL: Routine screening. Family history of breast cancer. Comparison is made to exams dated: 05/13/2018 mammogram - [facility], 04/23/2016 mammogram, and 03/17/2015 mammogram - [facility]. Both breasts are almost entirely fatty (category a/<25% glandular tissue). Current study was also evaluated with a Computer Aided Detection (CAD) system. No significant masses, calcifications, or other findings are seen in either breast. There has been no significant interval change. IMPRESSION: NEGATIVE There is no mammographic evidence of malignancy. A 1 year screening mammogram is recommended. Based on the Tyrer Cuzick model (a risk assessment model) the patient's lifetime risk is 6.3% and her 10 year risk is 3.3%. According to the ACR, ACS, and NCCN guidelines, an annual breast MRI exam along with mammogram is recommended if the patient's lifetime risk is 20% or greater. This exam was interpreted at Station ID: [id number]. NOTE: For mammograms, a report in lay terms will be sent to the patient. Approximately 15% of breast malignancies will not be visualized mammographically. In the management of a palpable breast mass, a negative mammogram must not discourage biopsy of a clinically suspicious lesion. Electronically Signed By: Tony cole/kai:03/24/2022 15:18:40 letter sent: Normal Exam ACR BI-RADS Category 1: Negative [id number]
== END ==
PROVIDERS: PCP Internal Medicine; Referring Provider Internal Medicine; Visit Provider Internal Medicine
DX: Z80.3 Family history of malignant neoplasm of breast (principal); Z12.31 Encounter for screening mammogram for malignant neoplasm of breast; Z13.820 Encounter for screening for osteoporosis; Z78.0 Asymptomatic menopausal state; E04.2 Nontoxic multinodular goiter; R73.01 Impaired fasting glucose; I10 Essential (primary) hypertension; E78.2 Mixed hyperlipidemia
CPT/HCPCS: 76536; 77063; 77067; 77080

== ENCOUNTER → 2022-11-29 09:59 | Outpatient (CLI) | payer MEDICARE, OTHER, SELFPAY ==
[2022-11-29 11:24] LABS: Hemoglobin A1C% w Est Avg Glu 5.8 % (4.0-6.0)
[2022-11-29 11:46] LABS: Alanine Aminotransferase 96 IU/L (<35); Albumin 4.3 g/dL (3.5-5.0); Albumin Globulin Ratio 1.5 (1.0-2.8); Alkaline Phosphatase 87 U/L (38-126); Aspartate Aminotransferase 93 IU/L (14-36); Bilirubin Total 0.9 mg/dL (0.2-1.3); Blood Urea Nitrogen 12 mg/dL (7-17); Calcium 9.6 mg/dL (8.4-10.2); Carbon Dioxide 22 mmol/L (22-32); Chloride 105 mmol/L (98-107); Cholesterol 231 mg/dL (140-199); Estimated Glomerular Filt Rate > 60 mL/min (>60); Globulin 2.8 g/dL (1.7-4.1); Glucose 118 mg/dL (80-110); HDL Cholesterol 54 mg/dL (40-60); HEMOLYSIS < 15 (0-50); LDL Cholesterol Calculated 142 mg/dL (<100); Potassium 4.6 mmol/L (3.4-5.1); Sodium 136 mmol/L (137-145); Total Protein 7.1 g/dL (6.3-8.2); Triglycerides 174 mg/dL (35-150)
== END ==
PROVIDERS: PCP Internal Medicine; Referring Provider Internal Medicine; Visit Provider Internal Medicine
DX: R73.01 Impaired fasting glucose (principal); E78.2 Mixed hyperlipidemia; I10 Essential (primary) hypertension; R79.89 Other specified abnormal findings of blood chemistry
CPT/HCPCS: 36415; 80053; 80061; 83036

== ENCOUNTER → 2023-03-25 13:17 | Outpatient (CLI) | payer MEDICARE, OTHER, SELFPAY ==
--- NOTE | 2023-03-25 13:20 | DI.MG.S_ITS ---
BILATERAL DIGITAL SCREENING MAMMOGRAM 3D/2D WITH CAD: 03/25/2023 CLINICAL: Routine screening. Family history of breast cancer. Comparison is made to exams dated: 03/24/2022 mammogram, 05/13/2018 mammogram - , and 04/23/2016 mammogram - [facility]. Both breasts are almost entirely fatty (category a/<25% glandular tissue). Current study was also evaluated with a Computer Aided Detection (CAD) system. No significant masses, calcifications, or other findings are seen in either breast. There has been no significant interval change. IMPRESSION: NEGATIVE There is no mammographic evidence of malignancy. A 1 year screening mammogram is recommended. Based on the Tyrer Cuzick model (a risk assessment model) the patient's lifetime risk is 6.0% and her 10 year risk is 3.3%. According to the ACR, ACS, and NCCN guidelines, an annual breast MRI exam along with mammogram is recommended if the patient's lifetime risk is 20% or greater. This exam was interpreted at Station ID: [id number]. NOTE: For mammograms, a report in lay terms will be sent to the patient. Approximately 15% of breast malignancies will not be visualized mammographically. In the management of a palpable breast mass, a negative mammogram must not discourage biopsy of a clinically suspicious lesion. Electronically Signed By: Mikey [email or web address]/kai:03/26/2023 08:33:12 letter sent: Normal Exam ACR BI-RADS Category 1: Negative [id number]
== END ==
PROVIDERS: PCP Internal Medicine; Referring Provider Internal Medicine; Visit Provider Internal Medicine
DX: Z12.31 Encounter for screening mammogram for malignant neoplasm of breast (principal); Z80.3 Family history of malignant neoplasm of breast
CPT/HCPCS: 77063; 77067

== ENCOUNTER 2023-05-03 21:02 | Observation (INO) | payer MEDICARE, OTHER, SELFPAY ==
[2023-05-03] VITALS (10 sets, daily range): BP systolic 167–204; BP diastolic 73–93; PULSE 65–72; RESP 20–33; TEMP 36.9; O2SAT 97–99; BMI 40.1
--- NOTE | 2023-05-03 21:12 | DI.RAD.S_ITS ---
PROCEDURE: XR CHEST 1V INDICATIONS: chest pain TECHNIQUE: One view of the chest was acquired. COMPARISON: None. FINDINGS: Surgical changes and devices: Patient is status post reverse right shoulder arthroplasty. Lungs and pleura: There is pulmonary vascular congestion and increased interstitial lung markings suggestive of pulmonary edema. Superimposed small infiltrates cannot be excluded. There is suggestion of small left pleural effusion. No pneumothorax. Mediastinum: Mediastinal contours appear normal. Heart size is enlarged. Bones and chest wall: No suspicious bony lesions. Overlying soft tissues appear unremarkable. IMPRESSION: Cardiomegaly and congestion with pulmonary edema. Cannot rule out superimposed interstitial infiltrates. Small left pleural effusion. No pneumothorax. Dictated by: Mario López M.D. on 05/03/2023 at 21:58 Approved by: Mario López M.D. on 05/03/2023 at 21:59
[2023-05-03 21:31] LABS: Add Manual Diff / Slide Review NO; Basophils Absolute Auto 100 /uL (0-100); Basophils Percent Auto 0.4 % (0-2); Eosinophils Absolute Auto 100 /uL (0-450); Eosinophils Percent Auto 0.8 % (2-4); Hematocrit 44.8 % (36-46); Hemoglobin 15.4 g/dL (12.0-16.0); Lymphocytes Absolute Auto 2000 /uL (1100-4500); Lymphocytes Percent Auto 13.4 % (25-40); Mean Corpuscular HGB Conc 34.5 % (30-36); Mean Corpuscular Volume 95.8 fL (80-100); Monocytes Absolute Auto 1500 /uL (0-900); Monocytes Percent Auto 9.7 % (3-14); Neutrophils Absolute Auto 11300 /uL (1500-7000); Neutrophils Percent Auto 75.7 % (50-75); Platelet Count 265 X10^3/uL (150-400); Red Blood Cell Count 4.67 X10^6/uL (4.0-5.2); Red Cell Distribution Width 13.5 % (11.6-14.8)
[2023-05-03 21:36] LABS: INR 1.1 (0.9-1.3); Prothrombin Time 12.4 SECONDS (9.4-12.5)
[2023-05-03 21:39] LABS: PTT Partial Thromboplastin Tim 35 SECONDS (25.1-36.5)
[2023-05-03 21:41] LABS: Alanine Aminotransferase 71 IU/L (<35); Albumin 4.4 g/dL (3.5-5.0); Albumin Globulin Ratio 1.3 (1.0-2.8); Alkaline Phosphatase 83 U/L (38-126); Aspartate Aminotransferase 59 IU/L (14-36); BUN Creatinine Ratio 18.6 (6-22); Bilirubin Total 0.8 mg/dL (0.2-1.3); Blood Urea Nitrogen 11 mg/dL (7-17); Calcium 9.4 mg/dL (8.4-10.2); Carbon Dioxide 24 mmol/L (22-32); Chloride 105 mmol/L (98-107); Creatine Kinase 62 U/L (30-135); Estimated Glomerular Filt Rate > 60 mL/min (>60); Globulin 3.4 g/dL (1.7-4.1); Glucose 127 mg/dL (80-110); HEMOLYSIS 47 (0-50); Lipase 136 U/L (23-300); Magnesium 2.1 mg/dL (1.6-2.3); Potassium 4.3 mmol/L (3.4-5.1); Sodium 137 mmol/L (137-145); Total Protein 7.8 g/dL (6.3-8.2)
[2023-05-03] MEDS: ASPIRIN 81 MG CHEW TAB 324 MG PO (21:45)
[2023-05-03 21:53] LABS: Troponin I < 0.012 ng/mL (0.01-0.034)
[2023-05-03 23:05] LABS: Influenza A - CEPHEID Flu A NEGATIVE (NEGATIVE); Influenza B - CEPHEID Flu B NEGATIVE (NEGATIVE); Respiratory Syncytial Virus Negative (Negative)
[2023-05-03 23:11] LABS: COVID-19 CEPHEID 4-PLEX PCR Negative (Negative)
[2023-05-04] VITALS (22 sets, daily range): BP systolic 124–167; BP diastolic 58–72; PULSE 61–75; RESP 14–27; TEMP 36.4–36.9; O2SAT 94–98; BMI 40.6
[2023-05-04 00:19] LABS: Troponin I < 0.012 ng/mL (0.01-0.034)
--- NOTE | 2023-05-04 02:23 | ED_ITS ---
HPI - Chest Pain General Chief Complaint: Chest Pain Stated Complaint: chest pain, sob Time Seen by Provider: 05/03/23 21:49 Source: patient Mode of arrival: Ambulatory Limitations: no limitations History of Present Illness HPI narrative: 68-year-old woman with a history of hyperlipidemia, hypertension, BMI of 40 presents with acute onset of dyspnea, chest pressure and headache around 3:00 p.m. this afternoon. She states that she was at home relaxing. She has never had similar symptoms. She did not become diaphoretic, nauseated did not note any chest pain. She has not noted that it has been worse to lay flat, she has not been describing exertional dyspnea. No lower extremity edema, no abdominal pain no recent upper respiratory infections no current fever Related Data Home Medications Medication Instructions Recorded Confirmed Saccharomyces boulardii 250 mg 250 mg PO BID 05/21/20 03/08/23 capsule (Daily Probiotic (S. boulardii)) dorzolamide 22.3 mg-timolol 6.8 1 drp EYE-BOTH BID 05/21/20 03/08/23 mg/mL eye drops multivitamin 1 tab PO DAILY 05/21/20 03/08/23 omega-3 fatty acids 1,250 mg 2,500 mg PO DAILY 05/21/20 03/08/23 capsule ResMed AirSense 11/05/21 03/08/23 ketoconazole 2 % topical cream 1 applic topical DAILY 12/06/22 03/08/23 Previous Rx's Medication Instructions Recorded pravastatin 10 mg tablet 10 mg PO DAILY #90 tabs 06/03/22 Allergies Allergy/AdvReac Type Severity Reaction Status Date / Time Penicillins Allergy Mild Verified 03/08/23 12:56 rosuvastatin AdvReac Intermediate joint aches Verified 03/08/23 12:56 Review of Systems Review of Systems Narrative: Pertinent positive and negative findings as per HPI Patient History Medical History BRAR (nonalcoholic steatohepatitis) Mixed hyperlipidemia Thyroid nodule Impaired fasting glucose Essential hypertension Primary osteoarthritis involving multiple joints Costochondral joint sprain Severe obesity (BMI >= 40) Multinodular non-toxic goiter Osteoarthritis, hip, bilateral Obstructive sleep apnea, adult (~2010) Surgical History History of right hip replacement Family History Mother Hypertension Heart disease Brother Sleep apnea Hypertension Social History Smoking Status: Never smoker Smoking Status: Never smoker Substance Use Type: does not use Exam Initial Vital Signs Initial Vital Signs: Vital Signs Temperature 98.5 F 05/03/23 21:08 Pulse Rate 72 05/03/23 21:08 Respiratory Rate 20 05/03/23 21:08 Blood Pressure 204/93 H 05/03/23 21:08 Pulse Oximetry 99 05/03/23 21:08 Oxygen Delivery Method Room Air 05/03/23 21:08 General: Healthy appearing, in no acute distress. Able to give a complete and coherent history. Well-nourished well-developed HEENT: Moist mucous membranes, normal sclera with reactive pupils, Neck: No JVD, supple Respiratory: Lungs are clear to auscultation, no wheezing no rales no rhonchi. Full and symmetrical air movement, she does not have reproducible pain with palpation along anterior chest wall are along sternum Cardiac: Regular rate and rhythm no murmurs no bruits Abdomen: Soft, nontender, good bowel tones, no flank pain Skin: Warm and dry, no rashes Neurologic: Grossly neurologically intact with no obvious asymmetries or abnormalities Extremities: No trauma, well perfused, 2+ bilateral lower extremity edema Psych: Cooperative, appropriate insight and affect Course Orders Ordered: ED Orders 05/03/23 21:12 XR chest 1V Stat EKG-12 Lead Stat 05/03/23 21:20 Complete Blood Count AUTO DIFF Stat Comprehensive Metabolic Panel Stat Lipase Stat Magnesium Stat PTT Partial Thromboplastin Brent Stat Prothrombin Time INR Stat Troponin & CK Cardiac Panel Stat 05/03/23 22:19 Covid-19 + FLU A/B + RSV - PCR Stat 05/03/23 23:40 Trop I [Troponin I] Stat 05/04/23 03:07 BNP [NT-proBNP (BNP-Adult 18+)] Stat Trop I [Troponin I] Stat Discontinued Medications Acetaminophen (Acetaminophen 325 Mg Tablet) 975 mg PO NOW ONE Stop: 05/04/23 03:21 Last Admin: 05/04/23 03:23 Dose: 975 mg Documented By: MICHELLE Aspirin (Aspirin 81 Mg Chew Tab) 324 mg PO NOW ONE Stop: 05/03/23 21:13 Last Admin: 05/03/23 21:45 Dose: 324 mg Documented By: BRINA Furosemide (Furosemide 40 Mg/4 Ml Vial) 40 mg IV NOW ONE Stop: 05/04/23 02:41 Last Admin: 05/04/23 02:51 Dose: 40 mg Documented By: MICHELLE Nitroglycerin (Nitroglycerin 0.4 Mg Sl Tab) 0.4 mg SL NOW ONE Stop: 05/04/23 02:41 Last Admin: 05/04/23 02:51 Dose: 0.4 mg Documented By: MICHELLE Nitroglycerin (Nitroglycerin 0.4 Mg Sl Tab) 0.4 mg SL NOW ONE Stop: 05/04/23 03:21 Last Admin: 05/04/23 03:24 Dose: 0.4 mg Documented By: MICHELLE Vital Signs Vital signs: Vital Signs - 8 hr 05/03/23 21:08 05/03/23 21:39 05/03/23 21:45 Temperature 98.5 F Pulse Rate 72 70 69 Respiratory Rate 20 33 H 29 H Blood Pressure 204/93 H Pulse Oximetry 99 98 99 Oxygen Delivery Method Room Air 05/03/23 21:45 05/03/23 22:00 05/03/23 22:00 Temperature Pulse Rate 65 Respiratory Rate 33 H Blood Pressure 191/79 H 181/77 H Pulse Oximetry 98 Oxygen Delivery Method Room Air 05/03/23 22:30 05/03/23 22:31 05/03/23 22:31 Temperature Pulse Rate 67 67 Respiratory Rate 29 H 26 H Blood Pressure 172/73 H Pulse Oximetry 97 97 Oxygen Delivery Method 05/03/23 23:00 05/03/23 23:01 05/03/23 23:01 Temperature Pulse Rate 72 71 Respiratory Rate 29 H 28 H Blood Pressure 167/75 H Pulse Oximetry 97 97 Oxygen Delivery Method Room Air 05/03/23 23:30 05/03/23 23:31 05/03/23 23:31 Temperature Pulse Rate 69 69 Respiratory Rate 28 H 27 H Blood Pressure 181/75 H Pulse Oximetry 97 97 Oxygen Delivery Method 05/04/23 00:00 05/04/23 00:01 05/04/23 00:01 Temperature Pulse Rate 68 69 Respiratory Rate 24 24 Blood Pressure 157/68 H Pulse Oximetry 96 96 Oxygen Delivery Method 05/04/23 00:30 05/04/23 00:30 05/04/23 01:00 Temperature Pulse Rate 71 71 Respiratory Rate 25 H 25 H Blood Pressure 165/70 H Pulse Oximetry 96 96 Oxygen Delivery Method 05/04/23 01:01 05/04/23 01:01 05/04/23 01:30 Temperature Pulse Rate 71 73 Respiratory Rate 24 24 Blood Pressure 158/72 H Pulse Oximetry 96 96 Oxygen Delivery Method 05/04/23 01:31 05/04/23 01:31 05/04/23 02:00 Temperature Pulse Rate 74 75 Respiratory Rate 24 27 H Blood Pressure 167/70 H Pulse Oximetry 96 97 Oxygen Delivery Method 05/04/23 02:01 05/04/23 02:01 05/04/23 02:30 Temperature Pulse Rate 73 68 Respiratory Rate 24 27 H Blood Pressure 154/68 H Pulse Oximetry 97 96 Oxygen Delivery Method 05/04/23 02:31 05/04/23 02:31 05/04/23 03:00 Temperature Pulse Rate 67 73 Respiratory Rate 24 25 H Blood Pressure 142/65 H Pulse Oximetry 97 94 Oxygen Delivery Method 05/04/23 03:00 05/04/23 03:30 05/04/23 03:55 Temperature Pulse Rate 73 74 Respiratory Rate 23 18 Blood Pressure 138/63 132/60 Pulse Oximetry 95 97 Oxygen Delivery Method 05/04/23 03:55 05/04/23 04:00 05/04/23 04:00 Temperature Pulse Rate 69 Respiratory Rate 22 Blood Pressure 161/69 H 132/58 L Pulse Oximetry 97 Oxygen Delivery Method MDM - Chest Pain Lab Data 05/03/23 21:20 05/03/23 21:20 Labs: Lab Results 05/03/23 05/03/23 05/03/23 Range/Units 21:20 22:19 23:40 WBC 15.0 H (4.5-11.0) X10^3/uL RBC 4.67 (4.0-5.2) X10^6/uL Hgb 15.4 (12.0-16.0) g/dL Hct 44.8 (36-46) % MCV 95.8 (80-100) fL MCH 33.0 (26-34) PG MCHC 34.5 (30-36) % RDW 13.5 (11.6-14.8) % Plt Count 265 (150-400) X10^3/uL Neut % (Auto) 75.7 H (50-75) % Lymph % (Auto) 13.4 L (25-40) % [place] % (Auto) 9.7 (3-14) % Eos % (Auto) 0.8 L (2-4) % Baso % (Auto) 0.4 (0-2) % Neut # (Auto) 70199 H (4305-2950) /uL Lymph # (Auto) 2000 (7075-0463) /uL [place] # (Auto) 1500 H (0-900) /uL Eos # (Auto) 100 (0-450) /uL Baso # (Auto) 100 (0-100) /uL PT 12.4 (9.4-12.5) SECONDS INR 1.1 (0.9-1.3) APTT 35 (25.1-36.5) SECONDS Sodium 137 (137-145) mmol/L Potassium 4.3 (3.4-5.1) mmol/L Chloride 105 (98-107) mmol/L Carbon Dioxide 24 (22-32) mmol/L BUN 11 (7-17) mg/dL Creatinine 0.59 (0.52-1.04) mg/dL Estimated GFR > 60 (>60) mL/min BUN/Creatinine Ratio 18.6 (6-22) Glucose 127 H (80-110) mg/dL Calcium 9.4 (8.4-10.2) mg/dL Magnesium 2.1 (1.6-2.3) mg/dL Total Bilirubin 0.8 (0.2-1.3) mg/dL AST 59 H (14-36) IU/L ALT 71 H (<35) IU/L Alkaline Phosphatase 83 (38-126) U/L Total Creatine Kinase 62 (30-135) U/L Troponin I < 0.012 < 0.012 (0.01-0.034) ng/mL NT-Pro-B Natriuret Pep (<125) pg/mL Total Protein 7.8 (6.3-8.2) g/dL Albumin 4.4 (3.5-5.0) g/dL Globulin 3.4 (1.7-4.1) g/dL Albumin/Globulin Ratio 1.3 (1.0-2.8) Lipase 136 (23-300) U/L SARS-CoV-2 (PCR) Negative (Negative) Influenza A (RT-PCR) Flu a negative (NEGATIVE) Influenza B (RT-PCR) Flu b negative (NEGATIVE) RSV (PCR) Negative (Negative) 05/04/23 Range/Units 03:07 WBC (4.5-11.0) X10^3/uL RBC (4.0-5.2) X10^6/uL Hgb (12.0-16.0) g/dL Hct (36-46) % MCV (80-100) fL MCH (26-34) PG MCHC (30-36) % RDW (11.6-14.8) % Plt Count (150-400) X10^3/uL Neut % (Auto) (50-75) % Lymph % (Auto) (25-40) % [place] % (Auto) (3-14) % Eos % (Auto) (2-4) % Baso % (Auto) (0-2) % Neut # (Auto) (1063-7420) /uL Lymph # (Auto) (4052-8309) /uL [place] # (Auto) (0-900) /uL Eos # (Auto) (0-450) /uL Baso # (Auto) (0-100) /uL PT (9.4-12.5) SECONDS INR (0.9-1.3) APTT (25.1-36.5) SECONDS Sodium (137-145) mmol/L Potassium (3.4-5.1) mmol/L Chloride (98-107) mmol/L Carbon Dioxide (22-32) mmol/L BUN (7-17) mg/dL Creatinine (0.52-1.04) mg/dL Estimated GFR (>60) mL/min BUN/Creatinine Ratio (6-22) Glucose (80-110) mg/dL Calcium (8.4-10.2) mg/dL Magnesium (1.6-2.3) mg/dL Total Bilirubin (0.2-1.3) mg/dL AST (14-36) IU/L ALT (<35) IU/L Alkaline Phosphatase (38-126) U/L Total Creatine Kinase (30-135) U/L Troponin I < 0.012 (0.01-0.034) ng/mL NT-Pro-B Natriuret Pep 216 H (<125) pg/mL Total Protein (6.3-8.2) g/dL Albumin (3.5-5.0) g/dL Globulin (1.7-4.1) g/dL Albumin/Globulin Ratio (1.0-2.8) Lipase (23-300) U/L SARS-CoV-2 (PCR) (Negative) Influenza A (RT-PCR) (NEGATIVE) Influenza B (RT-PCR) (NEGATIVE) RSV (PCR) (Negative) MDM Narrative Medical decision making narrative: CC: Acute dyspnea with chest pressure worse with deep breathing Complicating co-morbidities: BMI of 40, hypertension, hyperlipidemia no prior history of coronary artery disease or congestive heart failure Data collected from: patient Medical records reviewed: Recent primary care notes reviewed Differential considered: Acute coronary syndrome, flash pulmonary edema, congestive heart failure which would be a new diagnosis, pneumonia, viral syndrome Exam documented above, pertinent findings include: No wheezing and no rales at the bases however body habitus could make that more difficult to hear. Still describes chest pressure that is not reproducible but is worse with a deep breath, was surprised when I pointed out the pitting edema in her lower extremities. Lab Test results independently reviewed as above. Pertinent findings: CBC shows a white count at 15,000 with 75% neutrophils. No anemia Chemistries are unremarkable. She does have BRAR and mildly elevated AST and ALT Initial and repeat troponin x 2 are unremarkable Lipase is normal, no pancreatitis BNP is minimally elevated at 216 Independently reviewed EKG: Sinus rhythm at a rate of 70. Normal intervals, normal axis. No acute ischemic changes Imaging studies independently reviewed: Most recent echocardiogram September of 2021 shows an ejection fraction at 60-65%. Treatments Chewable aspirin, sublingual nitroglycerin, 60 mg of parenteral Lasix Re-evaluations: 3am residual pain and chest tightness almost entirely resolved with initial nitroglycerin 420am with pain now completely resolved after 2 doses of nitroglycerin, heart score 5 points which puts her at high risk and hospital admission for further cardiac workup recommended I am going to recommend hospitalization. She is responding to the Lasix and I believe that she will benefit from stress testing and likely echocardiogram. Discussion: 68-year-old woman with a history of hypertension hyperlipidemia diabetes, a BMI of 40 with acute onset dyspnea, negative troponin x3 but complete resolution of symptoms with nitroglycerin. Chest x-rays concerning for cardiomegaly and clinical congestive heart failure and she is responded nicely to Lasix. BNP is not dramatically elevated. Most recent echocardiogram was in 2021. At this point with the acute onset of dyspnea that has resolved with Lasix, a heart score of 5 and concerns for new diagnosis of congestive heart failure I would like to admit Kanchan to the hospitalist service for further cardiac workup likely to include both stress testing and echocardiogram. Have reviewed findings and concerns with the patient and she is agreeable to hospital admission. Care has been reviewed with the hospitalist service and patient will be admitted Discharge Plan Departure Patient Disposition: Admitted as Observation Clinical Impression: Acute dyspnea Chest pain Qualifiers: Chest pain type: unspecified Qualified Code(s): R07.9 - Chest pain, unspecified Acute CHF Qualifiers: Heart failure type: unspecified Qualified Code(s): I50.9 - Heart failure, unspecified
[2023-05-04] MEDS: FUROSEMIDE 40 MG/4 ML VIAL IV ×2 (02:51→09:17)
[2023-05-04] MEDS: NITROGLYCERIN 0.4 MG SL TAB SL ×2 (02:51→03:24)
[2023-05-04] MEDS: ACETAMINOPHEN 325 MG TABLET 975 MG PO (03:23)
[2023-05-04 03:38] LABS: NT-proBNP (BNP-Adult 18+) 216 pg/mL (<125)
[2023-05-04 03:41] LABS: Troponin I < 0.012 ng/mL (0.01-0.034)
--- NOTE | 2023-05-04 06:11 | DI.ECHO.S_ITS ---
[facility]---------+ [facility] +---------+ : : [address] : : : : [id number] : : : : Phone: [phone] Echocardiogram Report + + :Name: BHAVANI NORMAN Study Date: 05/04/2023 Height: 64 in : :[facility] ReadingLocation: Weight: 235 lb : : Gender: Female BSA: 2.1 m2 : :: 1955 Age: 68 yrs BP: 135/62 mmHg: :Reason For Study: CONGESTIVE HEART FAILURE : :Ordering Physician: JOSELUIS, : :TEJ Mahmood MD Performed By: Koki Steward : :Referring: TEJ HUGGINS MD : + + Interpretation Summary Normal sinus rhythm. Normal LV size, wall thickness, wall motion and LV systolic function. EF is 60-65%. Normal chamber sizes. No valvular abnormalities. Compared to prior study obtained October 15, 2021, E/ e' ratio has normalized suggesting normal LV filling pressure. Concern for advanced diastolic dysfunction is no longer present. Procedure: A two-dimensional transthoracic echocardiogram with color flow and Doppler was performed. The study quality was technically adequate. Comparison is made with the echocardiogram of 10/15/2021. The patient was in sinus rhythm with heart rates between 56-64 bpm during the exam. Left Ventricle: The left ventricle is normal in size and wall thickness. The ejection fraction is estimated to be 60-65%. Diastolic parameters suggest a relaxation abnormality of the left ventricle, consistent with probable normal filling pressures. Right Ventricle: The right ventricle is normal in size and function. Atria: The left atrial size is normal. Right atrial size is normal. There is no Doppler evidence for an interatrial shunt. Mitral Valve: The mitral valve is normal in structure and function. There is trace mitral regurgitation. Aortic Valve: The aortic valve is trileaflet. The aortic valve opens well. The peak aortic velocity is 1.7 m/sec. The aortic valve mean gradient is 6.4 mmHg. No aortic regurgitation is present. Tricuspid Valve: The tricuspid valve is normal in structure and function. There is mild tricuspid regurgitation. The right ventricular systolic pressure is estimated to be at least 26 mmHg based on an estimated right atrial pressure of 3 mm Hg. Pulmonic Valve: The pulmonic valve leaflets are thin and pliable; valve motion is normal. There is trace pulmonic regurgitation. Great Vessels: The aortic root is normal size. The dimensions of the ascending aorta are normal. The IVC is dilated (diameter is greater than 2.1 cm) yet it collapses greater than 50% with a sniff. This suggests a right atrial pressure of 8 mm Hg. Pericardium/ Pleura There is no pericardial effusion. There has been no significant change since the previous study. MMode/2D Measurements & Calculations LVIDd: 4.4 cm LVOT diam: 2.0 cm LVIDs: 2.9 cm Ao root diam: 2.9 cm FS: 33.1 % asc Aorta Diam: 3.1 cm IVSd: 1.1 cm Ao Arch Diam (Prox Trans): 2.9 cm LVPWd: 0.99 cm LV lovell. diameter/BSA (cm/m^2): 2.1 LV sys. diameter/BSA (cm/m^2): 1.4 LA A2 area: 18.5 cm2 RA long axis: 5.0 cm LA A4 area: 16.8 cm2 RA area: 17.2 cm2 LA length (vol): 5.1 cm RA vol: 50.9 ml LA vol: 51.6 ml RA : 24.3 ml/m2 LA vol index: 24.6 ml/m2 IVC diam: 2.2 cm RVD1 (basal): 3.2 cm RVD2 (mid): 2.8 cm TAPSE: 2.0 cm Doppler Measurements & Calculations Ao V2 max: 170.2 cm/sec LVOT Max Lino: 122.7 cm/sec Ao V2 mean: 122.1 cm/sec LV V1 max P.0 mmHg Ao max P.6 mmHg LV V1 VTI: 28.2 cm Ao mean P.4 mmHg LEATHA(I,D): 2.5 cm2 Ao V2 VTI: 34.8 cm LEATHA(V,D): 2.2 cm2 sev ratio: 0.81 LEATHA indexed to BSA (cm^2/m^2): 1.2 MV E max lino: 94.9 cm/sec TR max lino: 243.9 cm/sec MV A max lino: 85.5 cm/sec TR max P.8 mmHg MV E/A: 1.1 PA V2 max: 83.9 cm/sec Med Peak E' Lino: 8.3 cm/sec PA V2 mean: 64.6 cm/sec E/E' med: 11.4 PA mean P.8 mmHg Lat Peak E' Lino: 8.6 cm/sec PA pr(Accel): 43.0 mmHg E/E' lat: 11.0 E/e' average: 11.2 MV dec time: 0.17 sec SV([facility]): 87.7 ml Electronically signed by: Milagros Palma M.D. on Reading Physician:05/04/2023 02:45 PM
--- NOTE | 2023-05-04 06:18 | P.HP_ITS ---
History of Present Illness History of Present Illness Date Patient Seen: 05/04/23 Time Patient Seen: 06:15 Chief complaint: chest pain, sob Narrative: 68 years old obese female with a past medical history of dyslipidemia and obstructive sleep apnea presented to the emergency room for chest tightness/pressure with intermittent headache since late afternoon yesterday when she was at home relaxing. Denies any palpitation dizziness or loss of consciousness but denies any blurred vision diplopia headache. Denies any nasal congestion sore throat or upper respiratory symptoms. Denies any acid reflux symptoms. Denies any bowel movement or bladder issues. Has intermittent trace edema of the lower extremities with shortness of breath when laying flat. In the ED received nitroglycerin X2 and her symptoms resolved. Patient now reports she can lay flat without becoming short of breath. Workup in the ED included a chest x-ray/EKG that shows no acute process. Labs showed a white count of 15,000 with a hemoglobin of 15.4. The electrolytes were fairly unremarkable and troponin was negative. Blood sugar was 127. COVID influenza and RSV is negative. BNP is 216. EKG shows a sinus rhythm with no acute ST elevation or depression. Patient was admitted for further evaluation [facility] Medical History BRAR (nonalcoholic steatohepatitis) Mixed hyperlipidemia Thyroid nodule Impaired fasting glucose Essential hypertension Primary osteoarthritis involving multiple joints Costochondral joint sprain Severe obesity (BMI >= 40) Multinodular non-toxic goiter Osteoarthritis, hip, bilateral Obstructive sleep apnea, adult (~2010) Surgical History History of right hip replacement Family History Mother Hypertension Heart disease Brother Sleep apnea Hypertension Social History household members: spouse Smoking Status: Never smoker Meds Home Medications and Allergies Home Medications Medication Instructions Recorded Confirmed Type Saccharomyces boulardii 250 mg 250 mg PO BID 05/21/20 05/04/23 History capsule (Daily Probiotic (S. boulardii)) dorzolamide 22.3 mg-timolol 6.8 1 drp EYE-BOTH BID 05/21/20 05/04/23 History mg/mL eye drops multivitamin 1 tab PO DAILY 05/21/20 05/04/23 History omega-3 fatty acids 1,250 mg 2,500 mg PO DAILY 05/21/20 05/04/23 History capsule ResMed AirSense 10 Auto 11/05/21 03/08/23 History pravastatin 10 mg tablet 10 mg PO BEDTIME 05/04/23 05/04/23 History Allergies Allergy/AdvReac Type Severity Reaction Status Date / Time Penicillins Allergy Mild Verified 03/08/23 12:56 rosuvastatin AdvReac Intermediate joint aches Verified 03/08/23 12:56 Review of Systems Review of Systems Narrative: A 12 point review of system is negative unless otherwise stated in history of present illness Exam Vital Signs (past 8 hours): - 05/03/23 22:30 05/03/23 22:31 05/03/23 22:31 Temperature Pulse Rate 67 67 Respiratory Rate 29 H 26 H Blood Pressure 172/73 H Pulse Oximetry 97 97 Oxygen Delivery Method 05/03/23 23:00 05/03/23 23:01 05/03/23 23:01 Temperature Pulse Rate 72 71 Respiratory Rate 29 H 28 H Blood Pressure 167/75 H Pulse Oximetry 97 97 Oxygen Delivery Method Room Air 05/03/23 23:30 05/03/23 23:31 05/03/23 23:31 Temperature Pulse Rate 69 69 Respiratory Rate 28 H 27 H Blood Pressure 181/75 H Pulse Oximetry 97 97 Oxygen Delivery Method 05/04/23 00:00 05/04/23 00:01 05/04/23 00:01 Temperature Pulse Rate 68 69 Respiratory Rate 24 24 Blood Pressure 157/68 H Pulse Oximetry 96 96 Oxygen Delivery Method 05/04/23 00:30 05/04/23 00:30 05/04/23 01:00 Temperature Pulse Rate 71 71 Respiratory Rate 25 H 25 H Blood Pressure 165/70 H Pulse Oximetry 96 96 Oxygen Delivery Method 05/04/23 01:01 05/04/23 01:01 05/04/23 01:30 Temperature Pulse Rate 71 73 Respiratory Rate 24 24 Blood Pressure 158/72 H Pulse Oximetry 96 96 Oxygen Delivery Method 05/04/23 01:31 05/04/23 01:31 05/04/23 02:00 Temperature Pulse Rate 74 75 Respiratory Rate 24 27 H Blood Pressure 167/70 H Pulse Oximetry 96 97 Oxygen Delivery Method 05/04/23 02:01 05/04/23 02:01 05/04/23 02:30 Temperature Pulse Rate 73 68 Respiratory Rate 24 27 H Blood Pressure 154/68 H Pulse Oximetry 97 96 Oxygen Delivery Method 05/04/23 02:31 05/04/23 02:31 05/04/23 03:00 Temperature Pulse Rate 67 73 Respiratory Rate 24 25 H Blood Pressure 142/65 H Pulse Oximetry 97 94 Oxygen Delivery Method 05/04/23 03:00 05/04/23 03:30 05/04/23 03:55 Temperature Pulse Rate 73 74 Respiratory Rate 23 18 Blood Pressure 138/63 132/60 Pulse Oximetry 95 97 Oxygen Delivery Method 05/04/23 03:55 05/04/23 04:00 05/04/23 04:00 Temperature Pulse Rate 69 Respiratory Rate 22 Blood Pressure 161/69 H 132/58 L Pulse Oximetry 97 Oxygen Delivery Method 05/04/23 04:30 05/04/23 04:31 05/04/23 04:31 Temperature Pulse Rate 69 70 Respiratory Rate 22 23 Blood Pressure 124/59 L Pulse Oximetry 96 96 Oxygen Delivery Method 05/04/23 05:48 Temperature 97.9 F Pulse Rate 71 Respiratory Rate 18 Blood Pressure 135/62 Pulse Oximetry 96 Oxygen Delivery Method Oxygen Delivery Method Room Air Narrative Exam Narrative: Patient is awake alert and no acute distress. Air entry good bilaterally no wheezes no crackles S1-S2 regular Objective Labs 05/03/23 21:20 05/03/23 21:20 Labs: Laboratory Results - last 24 hr 05/03/23 05/03/23 05/03/23 21:20 22:19 23:40 WBC 15.0 H RBC 4.67 Hgb 15.4 Hct 44.8 MCV 95.8 MCH 33.0 MCHC 34.5 RDW 13.5 Plt Count 265 Neut % (Auto) 75.7 H Lymph % (Auto) 13.4 L [place] % (Auto) 9.7 Eos % (Auto) 0.8 L Baso % (Auto) 0.4 Neut # (Auto) 07174 H Lymph # (Auto) 2000 [place] # (Auto) 1500 H Eos # (Auto) 100 Baso # (Auto) 100 PT 12.4 INR 1.1 APTT 35 Sodium 137 Potassium 4.3 Chloride 105 Carbon Dioxide 24 BUN 11 Creatinine 0.59 Estimated GFR > 60 BUN/Creatinine Ratio 18.6 Glucose 127 H Calcium 9.4 Magnesium 2.1 Total Bilirubin 0.8 AST 59 H ALT 71 H Alkaline Phosphatase 83 Total Creatine Kinase 62 Troponin I < 0.012 < 0.012 NT-Pro-B Natriuret Pep Total Protein 7.8 Albumin 4.4 Globulin 3.4 Albumin/Globulin Ratio 1.3 Lipase 136 SARS-CoV-2 (PCR) Negative Influenza A (RT-PCR) Flu a negative Influenza B (RT-PCR) Flu b negative RSV (PCR) Negative 05/04/23 03:07 WBC RBC Hgb Hct MCV MCH MCHC RDW Plt Count Neut % (Auto) Lymph % (Auto) [place] % (Auto) Eos % (Auto) Baso % (Auto) Neut # (Auto) Lymph # (Auto) [place] # (Auto) Eos # (Auto) Baso # (Auto) PT INR APTT Sodium Potassium Chloride Carbon Dioxide BUN Creatinine Estimated GFR BUN/Creatinine Ratio Glucose Calcium Magnesium Total Bilirubin AST ALT Alkaline Phosphatase Total Creatine Kinase Troponin I < 0.012 NT-Pro-B Natriuret Pep 216 H Total Protein Albumin Globulin Albumin/Globulin Ratio Lipase SARS-CoV-2 (PCR) Influenza A (RT-PCR) Influenza B (RT-PCR) RSV (PCR) Assessment & Plan Assessment & Plan narrative: 68 years old obese female with a past medical history of dyslipidemia and obstructive sleep apnea presented to the emergency room for chest tightness/pressure with intermittent headache since late afternoon yesterday when she was at home relaxing. Denies any palpitation dizziness or loss of consciousness but denies any blurred vision diplopia headache. Denies any nasal congestion sore throat or upper respiratory symptoms. Denies any acid reflux symptoms. Denies any bowel movement or bladder issues. Has intermittent trace edema of the lower extremities with shortness of breath when laying flat. In the ED received nitroglycerin X2 and her symptoms resolved. Patient now reports she can lay flat without becoming short of breath. Workup in the ED included a chest x-ray/EKG that shows no acute process. Labs showed a white count of 15,000 with a hemoglobin of 15.4. The electrolytes were fairly unremarkable and troponin was negative. Blood sugar was 127. COVID influenza and RSV is negative. BNP is 216. EKG shows a sinus rhythm with no acute ST elevation or depression. Patient was admitted for further evaluation 1 chest tightness/shortness of breath at rest resolved with nitroglycerin. Patient has multiple risk factors including obesity/dyslipidemia. Did receive aspirin in the emergency room. Resume the home statin and low-dose beta- blockers based on tolerance. Follow-up with an echocardiogram and eventually a Myoview after ruling out for OK with serial enzymes and monitoring in the telemetry. 2 dyslipidemia resume the home statins and trend for now 3. Obstructive sleep apnea. CPAP to resume per home settings 4 DVT prophylaxis will be with Lovenox Patient will be admitted under observation status Patient was evaluated with help of video a communication device. Provider is located in [facility]. Time spent is 15 minutes
[2023-05-04 07:31] LABS: Cholesterol 177 mg/dL (140-199); HDL Cholesterol 53 mg/dL (40-60); LDL Cholesterol Calculated 108 mg/dL (<100); Triglycerides 80 mg/dL (35-150)
[2023-05-04 08:02] LABS: TSH w/ Reflex to FT4 0.62 uIU/mL (0.47-4.68)
[2023-05-04 08:23] LABS: Add Manual Diff / Slide Review NO; Basophils Absolute Auto 100 /uL (0-100); Basophils Percent Auto 0.5 % (0-2); Eosinophils Absolute Auto 100 /uL (0-450); Eosinophils Percent Auto 0.6 % (2-4); Hematocrit 41.1 % (36-46); Hemoglobin 14.4 g/dL (12.0-16.0); Lymphocytes Absolute Auto 2000 /uL (1100-4500); Lymphocytes Percent Auto 17.4 % (25-40); Mean Corpuscular HGB Conc 34.9 % (30-36); Mean Corpuscular Hemoglobin 33.1 PG (26-34); Mean Corpuscular Volume 94.7 fL (80-100); Monocytes Absolute Auto 1700 /uL (0-900); Monocytes Percent Auto 15.1 % (3-14); Neutrophils Absolute Auto 7600 /uL (1500-7000); Neutrophils Percent Auto 66.4 % (50-75); Platelet Count 237 X10^3/uL (150-400); Red Blood Cell Count 4.34 X10^6/uL (4.0-5.2); Red Cell Distribution Width 13.5 % (11.6-14.8); White Blood Cell Count 11.4 X10^3/uL (4.5-11.0)
--- NOTE | 2023-05-04 08:23 | PM.HP.1 ---
History of Present Illness History of Present Illness Date Patient Seen: 05/04/23 Chief complaint: chest pain, sob Narrative: From overnight provider: 68 years old obese female with a past medical history of dyslipidemia and obstructive sleep apnea presented to the emergency room for chest tightness/pressure with intermittent headache since late afternoon yesterday when she was at home relaxing. Denies any palpitation dizziness or loss of consciousness but denies any blurred vision diplopia headache. Denies any nasal congestion sore throat or upper respiratory symptoms. Denies any acid reflux symptoms. Denies any bowel movement or bladder issues. Has intermittent trace edema of the lower extremities with shortness of breath when laying flat. In the ED received nitroglycerin X2 and her symptoms resolved. Patient now reports she can lay flat without becoming short of breath. Workup in the ED included a chest x-ray/EKG that shows no acute process. Labs showed a white count of 15,000 with a hemoglobin of 15.4. The electrolytes were fairly unremarkable and troponin was negative. Blood sugar was 127. COVID influenza and RSV is negative. BNP is 216. EKG shows a sinus rhythm with no acute ST elevation or depression. Patient was admitted for further evaluation [facility] Medical History BRAR (nonalcoholic steatohepatitis) Mixed hyperlipidemia Thyroid nodule Impaired fasting glucose Essential hypertension Primary osteoarthritis involving multiple joints Costochondral joint sprain Severe obesity (BMI >= 40) Multinodular non-toxic goiter Osteoarthritis, hip, bilateral Obstructive sleep apnea, adult (~2010) Surgical History History of right hip replacement Family History Mother Hypertension Heart disease Brother Sleep apnea Hypertension Social History household members: friend(s) Smoking Status: Never smoker Meds Home Medications and Allergies Home Medications Medication Instructions Recorded Confirmed Type Saccharomyces boulardii 250 mg 250 mg PO BID 05/21/20 05/04/23 History capsule (Daily Probiotic (S. boulardii)) dorzolamide 22.3 mg-timolol 6.8 1 drp EYE-BOTH BID 05/21/20 05/04/23 History mg/mL eye drops multivitamin 1 tab PO DAILY 05/21/20 05/04/23 History omega-3 fatty acids 1,250 mg 2,500 mg PO DAILY 05/21/20 05/04/23 History capsule ResMed AirSense 10 Auto 11/05/21 05/04/23 History pravastatin 10 mg tablet 10 mg PO BEDTIME 05/04/23 05/04/23 History Allergies Allergy/AdvReac Type Severity Reaction Status Date / Time Penicillins Allergy Mild Verified 03/08/23 12:56 rosuvastatin AdvReac Intermediate joint aches Verified 03/08/23 12:56 Review of Systems Review of Systems Narrative: All other systems reviewed with the patient and are negative unless otherwise stated. Exam Vital Signs (past 8 hours): - 05/04/23 00:30 05/04/23 00:30 05/04/23 01:00 Temperature Pulse Rate 71 71 Respiratory Rate 25 H 25 H Blood Pressure 165/70 H Pulse Oximetry 96 96 05/04/23 01:01 05/04/23 01:01 05/04/23 01:30 Temperature Pulse Rate 71 73 Respiratory Rate 24 24 Blood Pressure 158/72 H Pulse Oximetry 96 96 05/04/23 01:31 05/04/23 01:31 05/04/23 02:00 Temperature Pulse Rate 74 75 Respiratory Rate 24 27 H Blood Pressure 167/70 H Pulse Oximetry 96 97 05/04/23 02:01 05/04/23 02:01 05/04/23 02:30 Temperature Pulse Rate 73 68 Respiratory Rate 24 27 H Blood Pressure 154/68 H Pulse Oximetry 97 96 05/04/23 02:31 05/04/23 02:31 05/04/23 03:00 Temperature Pulse Rate 67 73 Respiratory Rate 24 25 H Blood Pressure 142/65 H Pulse Oximetry 97 94 05/04/23 03:00 05/04/23 03:30 05/04/23 03:55 Temperature Pulse Rate 73 74 Respiratory Rate 23 18 Blood Pressure 138/63 132/60 Pulse Oximetry 95 97 05/04/23 03:55 05/04/23 04:00 05/04/23 04:00 Temperature Pulse Rate 69 Respiratory Rate 22 Blood Pressure 161/69 H 132/58 L Pulse Oximetry 97 05/04/23 04:30 05/04/23 04:31 05/04/23 04:31 Temperature Pulse Rate 69 70 Respiratory Rate 22 23 Blood Pressure 124/59 L Pulse Oximetry 96 96 05/04/23 05:48 Temperature 97.9 F Pulse Rate 71 Respiratory Rate 18 Blood Pressure 135/62 Pulse Oximetry 96 Oxygen Delivery Method Room Air Narrative Exam Narrative: GEN: no acute distress HEENT: moist mucous membranes, PERRL NECK: trachea midline, no JVD CV: regular rate and rhythm, no murmurs PULM: clear bilaterally ABD: soft, nontender, nondistended, no organomegaly EXT: warm and well perfused with no edema NEURO: awake, alert, oriented, no focal deficits Objective Labs 05/04/23 08:13 05/04/23 08:13 Labs: Laboratory Results - last 24 hr 05/03/23 05/03/23 05/03/23 21:20 22:19 23:40 WBC 15.0 H RBC 4.67 Hgb 15.4 Hct 44.8 MCV 95.8 MCH 33.0 MCHC 34.5 RDW 13.5 Plt Count 265 Neut % (Auto) 75.7 H Lymph % (Auto) 13.4 L [place] % (Auto) 9.7 Eos % (Auto) 0.8 L Baso % (Auto) 0.4 Neut # (Auto) 06642 H Lymph # (Auto) 2000 [place] # (Auto) 1500 H Eos # (Auto) 100 Baso # (Auto) 100 PT 12.4 INR 1.1 APTT 35 Sodium 137 Potassium 4.3 Chloride 105 Carbon Dioxide 24 BUN 11 Creatinine 0.59 Estimated GFR > 60 BUN/Creatinine Ratio 18.6 Glucose 127 H Calcium 9.4 Magnesium 2.1 Total Bilirubin 0.8 AST 59 H ALT 71 H Alkaline Phosphatase 83 Total Creatine Kinase 62 Troponin I < 0.012 < 0.012 NT-Pro-B Natriuret Pep Total Protein 7.8 Albumin 4.4 Globulin 3.4 Albumin/Globulin Ratio 1.3 Triglycerides Cholesterol LDL Cholesterol, Calc HDL Cholesterol Lipase 136 TSH SARS-CoV-2 (PCR) Negative Influenza A (RT-PCR) Flu a negative Influenza B (RT-PCR) Flu b negative RSV (PCR) Negative 05/04/23 03:07 WBC RBC Hgb Hct MCV MCH MCHC RDW Plt Count Neut % (Auto) Lymph % (Auto) [place] % (Auto) Eos % (Auto) Baso % (Auto) Neut # (Auto) Lymph # (Auto) [place] # (Auto) Eos # (Auto) Baso # (Auto) PT INR APTT Sodium Potassium Chloride Carbon Dioxide BUN Creatinine Estimated GFR BUN/Creatinine Ratio Glucose Calcium Magnesium Total Bilirubin AST ALT Alkaline Phosphatase Total Creatine Kinase Troponin I < 0.012 NT-Pro-B Natriuret Pep 216 H Total Protein Albumin Globulin Albumin/Globulin Ratio Triglycerides 80 Cholesterol 177 LDL Cholesterol, Calc 108 H HDL Cholesterol 53 Lipase TSH 0.62 SARS-CoV-2 (PCR) Influenza A (RT-PCR) Influenza B (RT-PCR) RSV (PCR) Assessment & Plan Assessment & Plan narrative: # chest tightness/shortness of breath at rest resolved with nitroglycerin. -Patient has multiple risk factors including obesity/dyslipidemia. Did receive aspirin in the emergency room. Continue aspirin. -Resume the home statin and low-dose beta-blockers based on tolerance. -echo reassuring with EF 60-65% and unchanged from prior -will undergo nuclear stress on 05/04 at 8am # HFpEF exacerbation -CXR with cardiomegaly and congestion with pulm edema -continue IV lasix # dyslipidemia -resume the home statin # Obstructive sleep apnea. -CPAP to resume per home settings DVT prophylaxis will be with Lovenox Patient will be admitted under observation status
[2023-05-04 08:38] LABS: BUN Creatinine Ratio 15.9 (6-22); Blood Urea Nitrogen 10 mg/dL (7-17); Calcium 8.9 mg/dL (8.4-10.2); Carbon Dioxide 24 mmol/L (22-32); Chloride 105 mmol/L (98-107); Estimated Glomerular Filt Rate > 60 mL/min (>60); Glucose 123 mg/dL (80-110); HEMOLYSIS < 15 (0-50); Potassium 3.9 mmol/L (3.4-5.1); Sodium 136 mmol/L (137-145)
[2023-05-04 08:54] LABS: Procalcitonin 0.11 ng/mL (<0.5)
[2023-05-04] MEDS: DORZOLAMIDE/TIMOLOL OPHTH 10 ML 1 DROPS EYE-BOTH ×2 (09:12→20:06)
[2023-05-04] MEDS: FISH OIL 1,000 MG CAPSULE 2000 MG PO (09:13)
[2023-05-04] MEDS: ENOXAPARIN 40 MG/0.4 ML SYRINGE SUBCUT ×2 (09:13→20:06)
[2023-05-04] MEDS: MULTIVITAMIN 1 TABLET 1 TAB PO (09:13)
[2023-05-04] MEDS: LACTOBACILLUS ACIDOPHILUS TABLET 1 EACH PO ×2 (09:13→20:07)
[2023-05-04 12:01] LABS: Appearance Urine UA CLEAR; Bilirubin Urine UA NEGATIVE (NEGATIVE); Color Urine UA YELLOW; Glucose Urine UA NEGATIVE (Negative); Ketones Urine UA NEGATIVE (NEGATIVE); Leukocyte Esterase Urine UA NEGATIVE (NEGATIVE); Nitrite Urine UA NEGATIVE (Negative); Occult Blood Urine UA NEGATIVE (Negative); Protein Urine UA NEGATIVE (Negative); Specific Gravity Urine UA <=1.005 (1.000-1.035); Urobilinogen Urine UA 0.2 E.U./dL (0.2)
[2023-05-04 12:02] LABS: Urine Volume 10mL (spun)
[2023-05-04 12:05] LABS: Bacteria Urine None Seen; Culture Indicated Urine Cult Not Indicated; RBC Urine None Seen (0-5/HPF); Squamous Epithelial Cell Urine None Seen (0-5/HPF); WBC Urine None Seen (0-5/HPF)
--- NOTE | 2023-05-04 14:48 | CM.DANOTE ---
Initial DCP Assessment Visit Note Reviewed EMR and team rounds for pt's medical status and anticipated home d/c needs. Met with pt at bedside to introduce self and role. Pt was found to be alert/oriented, resting in bed. Pt resides alone independently in her own home in [place], she shared that she has lots of friends and people from her [employer] who are willing to provide support and assistance for her, and declines the need for any d/c resources/services at this time. Payor: Medicare PCP: Dr. Vegas Pt is a 68 year-old F who presented to the ED last evening after having experienced sudden onset chortness of breath, chest pressure, and a persistent headache. Pt states that she drove herself to the ED, however she has a friend that will come to transport her home once she's medically stable for home d/c. In the ED, pt was given aspirin, nitroglycerin, and lasix resulting in resolution of her symptoms. Chest x-ray was concerning for new CHF diagnosis, as well as cardiomegaly. She was then placed in OBS bed for further eval/tx. The plan at this time is ECHO and stress test, however the stress test was not available today. Per Hospitalist, she may end up doing the stress test at the end of the week as OP, this is pending cont. ECHO results and telemetry monitoring. DCP will continue to follow and assist with any further evolving d/c needs. Discharge Planning/Care Management CM Discharge Assessment Start: 05/04/23 14:45 Freq: Status: Active Protocol: Document 05/04/23 14:45 DPL (Rec: 05/04/23 14:47 DPL [id number]) Discharge Planning Assessment Assigned [employer] Advance Directives? Yes Advance Directives on File No History Provided By Patient,Medical Record Has Patient been admitted in last 30 No days? Prior Living Arrangements House Household Members friend(s) Type of transporation used prior to Drives own vehicle admit Independent with ADL's Yes Is patient alert and oriented? Yes Comment N/A Caregiver for Another No Comment N/A Comment N/A Comment No anticipated d/c needs identified at this time. Barriers to Discharge No Discharge Plan Home Transportation Arrangement Friend Referrals Initiated None needed Whiteboard Updated in Patient Room with Yes name and ext. # of [employer] Review Status In Process Please Provide Date Initial DC 05/04/23 Assessment Was Performed
[2023-05-04] MEDS: ASPIRIN EC 81 MG TABLET PO (17:34)
[2023-05-04] MEDS: PRAVASTATIN 20 MG TABLET 10 MG PO (20:06)
[2023-05-05] VITALS: BP 120/67; PULSE 60; RESP 16; TEMP 36.2; O2SAT 99
[2023-05-05 04:00] VITALS: BP 134/68; PULSE 60; RESP 16; TEMP 36.3; O2SAT 95
[2023-05-05 06:25] LABS: Add Manual Diff / Slide Review NO; Basophils Absolute Auto 100 /uL (0-100); Basophils Percent Auto 1.3 % (0-2); Eosinophils Absolute Auto 200 /uL (0-450); Eosinophils Percent Auto 3.3 % (2-4); Hemoglobin 14.7 g/dL (12.0-16.0); Lymphocytes Absolute Auto 2500 /uL (1100-4500); Lymphocytes Percent Auto 34.2 % (25-40); Mean Corpuscular Hemoglobin 33.2 PG (26-34); Mean Corpuscular Volume 94.8 fL (80-100); Monocytes Absolute Auto 1000 /uL (0-900); Monocytes Percent Auto 14.5 % (3-14); Neutrophils Absolute Auto 3400 /uL (1500-7000); Neutrophils Percent Auto 46.7 % (50-75); Platelet Count 252 X10^3/uL (150-400); Red Blood Cell Count 4.43 X10^6/uL (4.0-5.2); Red Cell Distribution Width 13.3 % (11.6-14.8); White Blood Cell Count 7.2 X10^3/uL (4.5-11.0)
[2023-05-05 06:41] LABS: BUN Creatinine Ratio 21.7 (6-22); Blood Urea Nitrogen 15 mg/dL (7-17); Calcium 9.1 mg/dL (8.4-10.2); Carbon Dioxide 26 mmol/L (22-32); Chloride 104 mmol/L (98-107); Estimated Glomerular Filt Rate > 60 mL/min (>60); Glucose 105 mg/dL (80-110); HEMOLYSIS < 15 (0-50); Potassium 3.7 mmol/L (3.4-5.1); Sodium 137 mmol/L (137-145)
[2023-05-05 08:00] VITALS: BP 148/63; PULSE 54; RESP 16; TEMP 36.4; O2SAT 97
[2023-05-05] MEDS: LACTOBACILLUS ACIDOPHILUS TABLET 1 EACH PO (09:32)
[2023-05-05] MEDS: ENOXAPARIN 40 MG/0.4 ML SYRINGE SUBCUT (09:32)
[2023-05-05] MEDS: MULTIVITAMIN 1 TABLET 1 TAB PO (09:32)
[2023-05-05] MEDS: DORZOLAMIDE/TIMOLOL OPHTH 10 ML 1 DROPS EYE-BOTH (09:32)
[2023-05-05] MEDS: FISH OIL 1,000 MG CAPSULE 2000 MG PO (09:32)
[2023-05-05] MEDS: FUROSEMIDE 40 MG/4 ML VIAL IV (09:32)
[2023-05-05] MEDS: ASPIRIN EC 81 MG TABLET PO (09:32)
[2023-05-05] MEDS: ACETAMINOPHEN 325 MG TABLET 650 MG PO (09:34)
--- NOTE | 2023-05-05 10:06 | CM.DPC ---
DCP Cont. Reviewed EMR and team rounds for status updates. Plan is for pt to have a stress test today, if results are stable she will be cleared for d/c later today. Her friend will plan to transport her. No further DCP needs identified at this time.
--- NOTE | 2023-05-05 10:42 | P.DS_ITS ---
History of Present Illness History of Present Illness Chief complaint: chest pain, sob Narrative: 68 years old obese female with a past medical history of dyslipidemia and obstructive sleep apnea presented to the emergency room for chest tightness/pressure with intermittent headache since late afternoon yesterday when she was at home relaxing. Denies any palpitation dizziness or loss of consciousness but denies any blurred vision diplopia headache. Denies any nasal congestion sore throat or upper respiratory symptoms. Denies any acid reflux symptoms. Denies any bowel movement or bladder issues. Has intermittent trace edema of the lower extremities with shortness of breath when laying flat. In the ED received nitroglycerin X2 and her symptoms resolved. Patient now reports she can lay flat without becoming short of breath. Workup in the ED included a chest x-ray/EKG that shows no acute process. Labs showed a white count of 15,000 with a hemoglobin of 15.4. The electrolytes were fairly unremarkable and troponin was negative. Blood sugar was 127. COVID influenza and RSV is negative. BNP is 216. EKG shows a sinus rhythm with no acute ST elevation or depression. Patient was admitted for further evaluation Discharge Providers Provider Date of admission: 05/04/23 04:45 Discharge Date: 05/05/23 Primary care physician: Gilberto Vegas MD Consults: None. Discharge provider: Vishnu Amador MD Summary Hospital Course Discharge Diagnosis: 1. Atypical chest pain with negative echo and stress test. Hospital Course: She was admitted with atypical chest pain and dyspnea. There is a concern for possible fluid overload and she was given 1 dose of Lasix. She had a normal echo including diastolic parameters. She also had a pleuritic component of chest pain which improved and in fact resolved overnight. Her stress test with nuclear perfusion scans was unremarkable on the day of discharge. She felt at baseline and was eager to return home. She is advised to follow up with her primary care within a week to check in and be sure she has having no residual symptoms or concerns. She will be discharged without diuretics. Note that her x-ray was read as pulmonary edema but clinically she had no evidence of volume overload at the time of discharge in her echo is really quite unremarkable. Status at Discharge Cognitive/behavioral status at discharge: oriented Functional status at discharge: independent ambulation Overall status at discharge: patient is back to baseline Time Spent with Patient Time spent: Greater than 30 minutes Exam Vital Signs (past 8 hours): - 05/05/23 04:00 05/05/23 08:00 Temperature 97.4 F L 97.5 F L Pulse Rate 60 54 L Respiratory Rate 16 16 Blood Pressure 134/68 148/63 H Pulse Oximetry 95 97 Oxygen Flow Rate 0 Oxygen Delivery Method Room Air Oxygen Flow Rate 0 Narrative Exam Narrative: NAD, alert and oriented. Fluent speech. Lungs are clear, normal rate and effort. Heart is regular, no murmur gallop or rub. Abdomen is soft, non distended. Extremities are free of edema. Objective ECG Impression: Normal sinus rhythm without acute changes. Imaging Echo: Radiologist's impression: Normal sinus rhythm. Normal LV size, wall thickness, wall motion and LV systolic function. EF is 60-65%. Normal chamber sizes. No valvular abnormalities. Compared to prior study obtained October 15, 2021, E/ e' ratio has normalized suggesting normal LV filling pressure. Concern for advanced diastolic dysfunction is no longer present. Chest x-ray: Radiologist's impression: Cardiomegaly and congestion with pulmonary edema. Cannot rule out superimposed interstitial infiltrates. Small left pleural effusion. No pneumothorax. Labs 05/05/23 06:05 05/05/23 06:05 Labs: Laboratory Results - last 24 hr 05/04/23 05/05/23 11:10 06:05 WBC 7.2 RBC 4.43 Hgb 14.7 Hct 42.0 MCV 94.8 MCH 33.2 MCHC 35.0 RDW 13.3 Plt Count 252 Neut % (Auto) 46.7 L Lymph % (Auto) 34.2 [place] % (Auto) 14.5 H Eos % (Auto) 3.3 Baso % (Auto) 1.3 Neut # (Auto) 3400 Lymph # (Auto) 2500 [place] # (Auto) 1000 H Eos # (Auto) 200 Baso # (Auto) 100 Sodium 137 Potassium 3.7 Chloride 104 Carbon Dioxide 26 BUN 15 Creatinine 0.69 Estimated GFR > 60 BUN/Creatinine Ratio 21.7 Glucose 105 Calcium 9.1 Urine Color Yellow Urine Appearance Clear Urine pH 5.0 Ur Specific [place] <=1.005 Urine Protein Negative Urine Glucose (UA) Negative Urine Ketones Negative Urine Occult Blood Negative Urine Nitrate Negative Urine Bilirubin Negative Urine Urobilinogen 0.2 Ur Leukocyte Esterase Negative Urine RBC None seen Urine WBC None seen Ur Squamous Epith Cells None seen Urine Bacteria None seen Ur Culture Indicated? Cult not indicated Vol Urine Centrifuged 10ml (spun) [facility] Medical History BRAR (nonalcoholic steatohepatitis) Mixed hyperlipidemia Thyroid nodule Impaired fasting glucose Essential hypertension Primary osteoarthritis involving multiple joints Costochondral joint sprain Severe obesity (BMI >= 40) Multinodular non-toxic goiter Osteoarthritis, hip, bilateral Obstructive sleep apnea, adult (~2010) Surgical History History of right hip replacement Family History Mother Hypertension Heart disease Brother Sleep apnea Hypertension Social History household members: friend(s) Smoking Status: Never smoker Discharge Assessment & Plan Assessment and Plan Assessment: 1. Atypical chest pain, with normal stress test and echo. Resolved time of discharge. 2. Acute dyspnea with a question of pulmonary edema on chest x-ray. Diuresed with resolution of symptoms. Note that the patient has normal echo including diastolic parameters. Chronic medical issues include BRAR, hyperlipidemia, essential hypertension, morbid obesity, and thyroid nodule. Plan of Treatment: Discharge home with reassurance, no change to medications, and close follow up with PCP. Discharge Plan Discharge Plan Patient Disposition: Home Provider Discharge Comment: Stable for discharge with normal ECHO and stress test. Discharge orders & Medications Prescriptions: Continued pravastatin 10 mg tablet 10 mg PO BEDTIME dorzolamide-timolol 22.3-6.8 mg/mL drops 1 drp EYE-BOTH BID multivitamin Tablet 1 tab PO DAILY Saccharomyces boulardii [Daily Probiotic (S. boulardii)] 250 mg capsule 250 mg PO BID omega-3 fatty acids 1,250 mg capsule 2,500 mg PO DAILY (DME) ResMed AirSense 10 Auto See Rx Instructions .Route .MEDSUPPLY Rx Instructions: Pressure Min: 10 Max: 14 DME: [facility] [place] Set up 8.3.21 Medication counseling provided by Pharmacist: No Follow up/Referrals: Gilberto Vegas MD [Primary Care Provider] - Diet/Activity/Treatments Diet: Diet as Tolerated Skin/Wound/Dressing Care Report to your healthcare provider any signs of infection, such as:: increased pain Visit Report/Discharge Packet Stand Alone Forms: Patient Portal/API Discharge Data Primary Care Provider: Gilberto Vegas V Attending Provider: Sonny Hoffmann Admit Date/Time: 05/04/23 04:45
--- NOTE | 2023-05-05 11:14 | DI.NM.S_ITS ---
DATE OF SERVICE: 05/04/2023 PROCEDURE PERFORMED: Exercise treadmill, converted to a pharmacologic vasodilator stress only myocardial perfusion imaging study with gating to assess ejection fraction and regional wall motion. ORDERING PROVIDER: Sonny Hoffmann MD INDICATIONS: The patient is a 68-year-old obese female admitted with dyspnea and chest tightness. CARDIAC STRESS: The patient was initially stressed by treadmill using a standard [place] protocol but was able to exercise for only 2 minutes 34 seconds, stopping because of significant dyspnea. She achieved a maximum heart rate of only 120 bpm (79% of her predicted maximum) and therefore was converted to a pharmacologic vasodilator stress but had no chest discomfort or ECG changes with exercise. Per protocol, 0.4 mg of regadenoson was infused with associated mild chest tightness and left arm tingling. Her ECG continued to appear normal without any ST-segment shifts. There were rare isolated PVCs but no concerning arrhythmias. Per protocol, 25.3 mCi of technetium-99m Myoview was injected and she was imaged 15 minutes later using a gated SPECT acquisition protocol. Based on her stress images, it was felt that resting images were not needed. FINDINGS: 1. Raw data. There is fair myocardial tracer uptake but fairly marked breast attenuation noted. The lung/heart ratio is normal at 0.37. 2. Quantitated gated SPECT: Post-stress ejection fraction is estimated at 86% without any focal wall motion abnormality and specifically the anterior wall appears to have brisk, normal contractility. End-diastolic volume is normal at 85 mL There is somewhat increased tracer uptake of the right ventricular free wall with normal right ventricular size and function. Increased tracer uptake can be an indication of a right ventricular overload condition. 3. Myocardial perfusion imaging: Post-stress supine images show a fairly normal myocardial perfusion pattern with a very small subtle defect at the distal lateral apex that resolves on prone imaging, revealing a normal, homogeneous tracer activity, suggesting breast attenuation artifact. Given the normal perfusion on the prone images, it was felt that resting images were not needed. IMPRESSION: 1. Normal myocardial perfusion study. 2. Small, subtle, distal lateral apical defect that resolves on prone imaging that likely reflects breast attenuation artifact. There is no evidence for any myocardial ischemia or previous myocardial infarction. 3. Normal left ventricular systolic function without any focal wall motion abnormality. The increased right ventricular tracer uptake seen can be a sign of a right ventricular overload condition but clinical correlation is needed. 4. Slight chest tightness with pharmacologic vasodilator stress. She had markedly reduced exercise capacity due to dyspnea but no chest discomfort or ECG changes with stress and only rare isolated PVCs but no complex ectopy. [employer] - GENESIS/sophy/jaye doc#: [id number]/job#: [id number] dd: 05/05/2023 10:39:00 dt: 05/05/2023 10:55:00 DICTATING MD/COPIES TO: Frankie Julio MD; Dr. Sonny Hoffmann COPIES MNE: ANNABELLA; ; Dr. Sonny Hoffmann
--- NOTE | 2023-05-05 11:34 | PC.NURSE ---
Pt is dressed and ready for discharge home with friends. IV and tele have been removed. Went over d/c instructions with Pt - discussed d/c meds, time of last dose, reviewed stroke education and CHF guidelines sheet. Pt denied further questions and will be ready to discharge home as soon as her friend arrives to take her home.
--- NOTE | 2023-05-05 12:21 | PC.NURSE ---
Pt out via w/c by NUMEROLOGIST to POV with Friend and all belongings.
== END 2023-05-05 12:21 | disposition home or self-care (01) ==
LOC: ED 05-04 04:31 → AC 05-04 04:46
PROVIDERS: Student in an Organized Health Care Education/Training Program; Admitting Provider Internal Medicine; Emergency Provider Emergency Medicine; PCP Internal Medicine; Referring Provider Emergency Medicine; Visit Provider Internal Medicine
DX: R07.9 Chest pain, unspecified (principal); R06.02 Shortness of breath; G47.33 Obstructive sleep apnea (adult) (pediatric); R51.9 Headache, unspecified; E66.01 Morbid (severe) obesity due to excess calories; Z68.41 Body mass index [BMI] 40.0-44.9, adult
CPT/HCPCS: 0241U; 36415; 71045; 78451; 80048; 80053; 80061; 81001; 82550; 83690; 83735; 83880; 84145; 84443; 84484; 85025; 85610; 85730; 93005; 93010; 93017; 93306; 96372; 96374; 96376; 99284; G0378; A9270; A9502; J1650; J1940; J2785

== ENCOUNTER → 2024-04-10 16:48 | Outpatient (CLI) | payer MEDICARE, OTHER, SELFPAY ==
[2023-05-04 05:18] VITALS: BMI 40.6
--- NOTE | 2024-04-10 16:49 | DI.MG.S_ITS ---
BILATERAL DIGITAL SCREENING MAMMOGRAM 3D/2D WITH CAD: 04/10/2024 CLINICAL: Routine screening. Family history of breast cancer. Comparison is made to exams dated: 03/25/2023 mammogram, 03/24/2022 mammogram, and 05/13/2018 mammogram - [facility]. The breasts are almost entirely fatty (category a/<25% glandular tissue). Current study was also evaluated with a Computer Aided Detection (CAD) system. No significant masses, calcifications, or other findings are seen in either breast. There has been no significant interval change. IMPRESSION: NEGATIVE There is no mammographic evidence of malignancy. A 1 year screening mammogram is recommended. Based on the Tyrer Cuzick model (a risk assessment model) the patient's lifetime risk is 5.3% and her 10 year risk is 3.4%. According to the ACR, ACS, and NCCN guidelines, an annual breast MRI exam along with mammogram is recommended if the patient's lifetime risk is 20% or greater. This exam was interpreted at Station ID: [id number]. NOTE: For mammograms, a report in lay terms will be sent to the patient. Approximately 15% of breast malignancies will not be visualized mammographically. In the management of a palpable breast mass, a negative mammogram must not discourage biopsy of a clinically suspicious lesion. Electronically Signed By: Andria Jin M.D., Ph.D. amber/kai:04/11/2024 07:19:09 letter sent: Normal Exam ACR BI-RADS Category 1: Negative
== END ==
PROVIDERS: PCP Internal Medicine; Referring Provider Internal Medicine; Visit Provider Internal Medicine
DX: Z12.31 Encounter for screening mammogram for malignant neoplasm of breast (principal); Z80.3 Family history of malignant neoplasm of breast; R92.313 Mammographic fatty tissue density, bilateral breasts
CPT/HCPCS: 77063; 77067

== ENCOUNTER 2024-12-26 01:39 | Observation (INO) | payer MEDICARE, OTHER, SELFPAY ==
[2023-05-04 05:18] VITALS: BMI 40.6
[2024-12-26] VITALS (34 sets, daily range): BP systolic 132–201; BP diastolic 62–98; PULSE 44–78; RESP 15–20; TEMP 36.6–37.3; O2SAT 94–98; BMI 41.1
[2024-12-26 02:23] LABS: Culture Indicated Urine Cult Not Indicated
[2024-12-26 02:46] LABS: Add Manual Diff / Slide Review NO; Hematocrit 43.3 % (36-46); Hemoglobin 14.8 g/dL (12.0-16.0); Lymphocytes Absolute Auto 1400 /uL (1100-4500); Mean Corpuscular HGB Conc 34.1 % (30-36); Mean Corpuscular Hemoglobin 32.2 PG (26-34); Mean Corpuscular Volume 94.3 fL (80-100); Platelet Count 312 X10^3/uL (150-400)
[2024-12-26 02:53] LABS: Alanine Aminotransferase 50 IU/L (<35); Albumin 4.5 g/dL (3.5-5.0); Albumin Globulin Ratio 1.4 (1.0-2.8); Alkaline Phosphatase 105 U/L (38-126); Blood Urea Nitrogen 15 mg/dL (7-17); Calcium 9.1 mg/dL (8.4-10.2); Carbon Dioxide 21 mmol/L (22-32); Chloride 101 mmol/L (98-107); Estimated Glomerular Filt Rate > 60 mL/min (>60); Globulin 3.2 g/dL (1.7-4.1); Glucose 185 mg/dL (70-99); HEMOLYSIS < 15 (0-50); Lipase 47 U/L (23-300); Potassium 4.1 mmol/L (3.4-5.1); Sodium 132 mmol/L (137-145); Total Protein 7.7 g/dL (6.3-8.2)
--- NOTE | 2024-12-26 02:56 | DI.CT.S_ITS ---
PROCEDURE: CT ABDOMEN PELVIS W CON
--- NOTE | 2024-12-26 03:01 | ED_ITS ---
HPI - Abdominal Pain
--- NOTE | 2024-12-26 03:01 | ED.ABDPAIN ---
HPI - Abdominal Pain General Chief Complaint: Abdominal Pain Stated Complaint: Abdominal Pain, Nausea Time Seen by Provider: 12/26/24 02:11 Source: patient Mode of arrival: Ambulatory History of Present Illness HPI narrative: 69-year-old female who has been having left lower abdominal pain for the past week but has gradually gotten worse and tonight became less bearable. Patient denies any nausea vomiting. No hematuria seen. No symptoms. Approximately seven years ago, patient was told that she had a left ovarian cyst by an OBgyn physician in [place]. Related Data Home Medications ?Medication ?Instructions ?Recorded ?Confirmed Saccharomyces boulardii 250 mg 250 mg PO BID 05/21/20 09/06/23 capsule (Daily Probiotic (S. boulardii)) dorzolamide 22.3 mg-timolol 6.8 1 drp EYE-BOTH BID 05/21/20 09/06/23 mg/mL eye drops multivitamin 1 tab PO DAILY 05/21/20 09/06/23 omega-3 fatty acids 1,250 mg 2,500 mg PO DAILY 05/21/20 09/06/23 capsule ResMed AirSense 11/05/21 09/06/23 Previous Rx's ?Medication ?Instructions ?Recorded nitroglycerin 0.4 mg sublingual 0.4 mg sublingual Q5M PRN chest 09/06/23 tablet pain #25 tabs pravastatin 10 mg tablet 10 mg PO BEDTIME #90 tabs 06/04/24 Allergies Allergy/AdvReac Type Severity Reaction Status Date / Time Penicillins Allergy Mild Verified 12/26/24 01:51 rosuvastatin AdvReac Intermediate joint aches Verified 12/26/24 01:51 Review of Systems Review of Systems ROS Unobtainable: All systems reviewed & are unremarkable except as noted in HPI and below Patient History Medical History (Updated 12/26/24 @ 07:07 by Anton Castro MD) Esophageal spasm BRAR (nonalcoholic steatohepatitis) Mixed hyperlipidemia Thyroid nodule Impaired fasting glucose Essential hypertension Primary osteoarthritis involving multiple joints Costochondral joint sprain Severe obesity (BMI >= 40) Multinodular non-toxic goiter Osteoarthritis, hip, bilateral Obstructive sleep apnea, adult (~2010) Surgical History History of right hip replacement Family History Mother Hypertension Heart disease Brother Sleep apnea Hypertension Social History household members: friend(s) Smoking Status: Never smoker Smoking Status: Never smoker alcohol intake frequency: holidays/special occasions only Exam Narrative Exam Narrative: General: Patient appears to be in no acute distress, acting appropriately Head: normocephalic, atraumatic, HEENT: Pupils equal round reactive, eyes tracking well, neck supple, no JVD Heart: regular rate and rhythm, no murmurs, rubs, or gallops heard Lungs: clear to auscultation, no adventitious sounds Abdomen: soft , pain with palpation in left lower abdomen area, no rebound, no guarding, nondistended, positive bowel sounds Neurological: no focal neurological signs, moving all extremities well, alert and oriented x3, Psych: good judgment ,good insight, mood is normal. Initial Vital Signs Initial Vital Signs: Vital Signs Temperature 99 F 12/26/24 01:51 Pulse Rate 75 12/26/24 01:51 Respiratory Rate 16 12/26/24 01:51 Blood Pressure 193/81 H 12/26/24 01:51 Pulse Oximetry 95 12/26/24 01:51 Oxygen Delivery Method Room Air 12/26/24 01:51 Course Orders Ordered: ED Orders 12/26/24 02:00 Urine Microscopic Stat 12/26/24 02:25 Cancer Antigen 125 Stat Complete Blood Count AUTO DIFF Stat Comprehensive Metabolic Panel Stat Lipase Stat 12/26/24 02:56 CT abdomen pelvis w con Stat 12/26/24 05:18 US pelvic complete Stat Acetaminophen (Acetaminophen 325 Mg Tablet) 650 mg PO Q6H PRN PRN Reason: Fever/Mild Pain (1-3) Lactated Ringer's (Lactated Ringers) 1,000 mls @ 70 mls/hr IV CONT KALYANI Naloxone HCl (Naloxone 0.4 Mg/Ml Vial) 0.2 mg IV Q2MIN PRN PRN Reason: Opiate Reversal Ondansetron HCl (Ondansetron 4 Mg/2 Ml Inj) 4 mg IV NOW PRN PRN Reason: Nausea And Vomiting Last Admin: 12/26/24 05:22 Dose: 4 mg Documented By: ELIZABET Ondansetron HCl (Ondansetron 4 Mg Odt) 4 mg PO NOW PRN PRN Reason: Nausea And Vomiting Ondansetron HCl (Ondansetron 4 Mg/2 Ml Inj) 4 mg IV Q8HR PRN PRN Reason: Nausea And Vomiting Oxycodone HCl (Oxycodone Ir 5 Mg Tablet) 5 mg PO Q3H PRN PRN Reason: Pain, Moderate (4-6) Oxycodone HCl (Oxycodone Ir 10 Mg Tablet) 10 mg PO Q3H PRN PRN Reason: Pain, Severe (7-10) Discontinued Medications Hydromorphone HCl (Hydromorphone Hcl 0.5 Mg/0.5 Ml Syringe) 0.5 mg IV NOW ONE Stop: 12/26/24 05:18 Last Admin: 12/26/24 05:22 Dose: 0.5 mg Documented By: ELIZABET Sodium Chloride (Normal Saline 0.9%) 1,000 mls @ 1,000 mls/hr IV BOLUS ONE Stop: 12/26/24 04:01 Last Infusion: 12/26/24 04:42 Dose: Infused Documented By: Admin: 12/26/24 03:10 Dose: 1,000 mls/hr Documented By: ELIZABET Ketorolac Tromethamine (Ketorolac 30 Mg/Ml Vial) 15 mg IV NOW ONE Stop: 12/26/24 03:02 Last Admin: 12/26/24 03:10 Dose: 15 mg Documented By: ELIZABET Reevaluation(s) Reevaluation #1: Upon initial evaluation, patient's pain was subsiding Reevaluation #2: After CT was done patient's pain started creeping back. Reevaluation #3: After given Dilaudid, patient is comfortable and pain-free. Time: 06:04 Consultations Consultation #1: Dr Hickey automobile parts assembler consulted who will see the patient bedside Time: 05:59 Vital Signs Vital signs: Vital Signs - 8 hr 12/26/24 01:51 12/26/24 03:37 12/26/24 03:38 Temperature 99 F Pulse Rate 75 73 Respiratory Rate 16 Blood Pressure 193/81 H 156/68 H Pulse Oximetry 95 98 Oxygen Delivery Method Room Air Room Air 12/26/24 03:38 12/26/24 04:00 12/26/24 04:00 Temperature Pulse Rate 74 68 Respiratory Rate Blood Pressure 174/74 H Pulse Oximetry 97 98 Oxygen Delivery Method Room Air Room Air 12/26/24 04:30 12/26/24 04:30 Temperature Pulse Rate 64 Respiratory Rate 18 Blood Pressure 163/72 H Pulse Oximetry 98 Oxygen Delivery Method Room Air MDM - Abdominal Pain Lab Data 12/26/24 02:25 12/26/24 02:25 Labs: Lab Results 12/26/24 12/26/24 Range/Units 02:00 02:25 WBC 14.3 H (4.5-11.0) X10^3/uL RBC 4.59 (4.0-5.2) X10^6/uL Hgb 14.8 (12.0-16.0) g/dL Hct 43.3 (36-46) % MCV 94.3 (80-100) fL MCH 32.2 (26-34) PG MCHC 34.1 (30-36) % RDW 13.4 (11.6-14.8) % Plt Count 312 (150-400) X10^3/uL Neut % (Auto) 79.7 H (50-75) % Lymph % (Auto) 10.1 L (25-40) % [place] % (Auto) 9.0 (3-14) % Eos % (Auto) 0.4 L (2-4) % Baso % (Auto) 0.8 (0-2) % Neut # (Auto) 89431 H (9367-1957) /uL Lymph # (Auto) 1400 (8612-9442) /uL [place] # (Auto) 1300 H (0-900) /uL Eos # (Auto) 100 (0-450) /uL Baso # (Auto) 100 (0-100) /uL Sodium 132 L (137-145) mmol/L Potassium 4.1 (3.4-5.1) mmol/L Chloride 101 (98-107) mmol/L Carbon Dioxide 21 L (22-32) mmol/L BUN 15 (7-17) mg/dL Creatinine 0.76 (0.52-1.04) mg/dL Estimated GFR > 60 (>60) mL/min BUN/Creatinine Ratio 19.7 (6-22) Glucose 185 H (70-99) mg/dL Calcium 9.1 (8.4-10.2) mg/dL Total Bilirubin 0.6 (0.2-1.3) mg/dL AST 38 H (14-36) IU/L ALT 50 H (<35) IU/L Alkaline Phosphatase 105 (38-126) U/L Total Protein 7.7 (6.3-8.2) g/dL Albumin 4.5 (3.5-5.0) g/dL Globulin 3.2 (1.7-4.1) g/dL Albumin/Globulin Ratio 1.4 (1.0-2.8) Lipase 47 (23-300) U/L Urine RBC 1-5/hpf (0-5/HPF) Urine WBC 0-1/hpf (0-5/HPF) Ur Squamous Epith Cells 1-5 /hpf (0-5/HPF) Urine Bacteria Occasional (0-1) (None) Urine Mucus 1+ H (Negative) Ur Culture Indicated? Cult not indicated Vol Urine Centrifuged 10ml (spun) Point of care testing: Urine Dip Bedside Urine Glucose Negative Bedside Urine Bilirubin - Negative Bedside Urine Ketone - Negative Urine Specific [place] 1.015 Bedside Urine Occult Blood + Bedside Urine pH 6.0 Bedside Urine Protein - Negative Bedside Urine Urobilinogen - Negative Bedside Urine Nitrite - Negative Bedside Urine Leukocytes - Negative Esterase Imaging Data CT scan - abdomen/pelvis: Radiologist's Impression: 8 cm septated cystic mass to the left adnexal region. Associated with peripheral fat stranding/inflammation. Differential diagnosis includes ruptured hemorrhagic cyst, ovarian torsion, neoplasm, among other etiologies. Mild hepatosplenomegaly. Examination otherwise unremarkable. No significant lymphadenopathy MDM Narrative Medical decision making narrative: 69-year-old female with a known left ovarian cyst that became painful in the past week and today got to the point where it was unbearable. Ob Dr Hickey was consulted who we will admit the patient under observation care. Today's imaging again showed a complex cyst in the left adnexa area. Discharge Plan Departure Patient Disposition: Admitted as Observation Clinical Impression: Complex cyst of left ovary Admit Date/Time: 12/26/24 06:56 Admit Provider: Teodora Hickey
[2024-12-26] MEDS: SODIUM CHLORIDE 0.9% 1,000 ML 1000 ML IV (03:10)
[2024-12-26] MEDS: KETOROLAC 30 MG/ML VIAL 15 MG IV (03:10)
--- NOTE | 2024-12-26 03:23 | PC.NURSE ---
Pt to imaging via ED stretcher with polysomnography tech
--- NOTE | 2024-12-26 05:18 | DI.US.S_ITS ---
PROCEDURE: US PELVIC LIMITED
[2024-12-26] MEDS: ONDANSETRON 4 MG/2 ML INJ IV (05:22)
--- NOTE | 2024-12-26 05:39 | PC.NURSE ---
Ambulatory to restroom with 1 person stand by. Us now at bedside.
--- NOTE | 2024-12-26 07:23 | P.HPOB_ITS ---
History of Present Illness
--- NOTE | 2024-12-26 07:23 | PM.GYNHP.1 ---
History of Present Illness History of Present Illness Reason for admission: pelvic pain Narrative: Kanchan Cadet is a 69 year old nulliparous post menopausal female who presents to ED with c/o 2wks increasing lower abdominal bloating with associated early satiety, 1 week of increasing LLQ pain with sudden increase yesterday evening wherein she was unable to sit, stand or move without severe pain and presented to ED for further evaluation. On arrival pt was non-toxic appearing, mild leukocytosis WBC 14.3k, VSS/afebrile. CT abd/pelvis as well as pelvic US resulted significant for 8cm L adnexal mass and MUSIC REHABILITATION THERAPIST consulted for further evaluation and management. On my interview patient is resting supine in bed, uncomfortable but non-toxic appearing. Patient states that she had less severe symptoms that were similar in 2019 and pelvic US per her PCP (Dr. Vegas) that identified a PONCHO complex cyst 5.6x3.0x3.2cm with internal septa. Pt states that she does not recall MUSIC REHABILITATION THERAPIST evaluation at this time but was told by Dr. Vegas that this was something she did not need to worry about if she wasn't having symptoms. PMHx notable for class 3 obesity, HLD, chronic elevation in LFTs per chart review, possible historical CHF exacerbation with elevated BNP. Patient states that her pain has improved with IV dilaudid/toradol but remains quite uncomfortable. [facility] Medical History (Updated 12/26/24 @ 07:07 by Anton Castro MD) Esophageal spasm BRAR (nonalcoholic steatohepatitis) Mixed hyperlipidemia Thyroid nodule Impaired fasting glucose Essential hypertension Primary osteoarthritis involving multiple joints Costochondral joint sprain Severe obesity (BMI >= 40) Multinodular non-toxic goiter Osteoarthritis, hip, bilateral Obstructive sleep apnea, adult (~2010) Surgical History History of right hip replacement Family History Mother Hypertension Heart disease Brother Sleep apnea Hypertension Social History household members: friend(s) Meds Home Medications and Allergies Home Medications ?Medication ?Instructions ?Recorded ?Confirmed ?Type Saccharomyces boulardii 250 mg 250 mg PO BID 05/21/20 12/26/24 History capsule (Daily Probiotic (S. boulardii)) multivitamin 1 tab PO DAILY 05/21/20 12/26/24 History omega-3 fatty acids 1,250 mg 2,500 mg PO DAILY 05/21/20 12/26/24 History capsule ResMed AirSense 10 11/05/21 09/06/23 History nitroglycerin 0.4 mg sublingual 0.4 mg sublingual Q5M PRN chest 09/06/23 12/26/24 Rx tablet pain #25 tabs pravastatin 10 mg tablet 10 mg PO BEDTIME #90 tabs 06/04/24 12/26/24 Rx Allergies Allergy/AdvReac Type Severity Reaction Status Date / Time Penicillins Allergy Mild Verified 12/26/24 11:20 rosuvastatin AdvReac Intermediate joint aches Verified 12/26/24 11:20 Review of Systems Review of Systems ROS: Yes All systems reviewed with the patient and are negative except as otherwise documented Exam Vital Signs (past 8 hours): - 12/26/24 01:51 12/26/24 03:37 12/26/24 03:38 Temperature 99 F Pulse Rate 75 73 Respiratory Rate 16 Blood Pressure 193/81 H 156/68 H Pulse Oximetry 95 98 Oxygen Delivery Method Room Air Room Air 12/26/24 03:38 12/26/24 04:00 12/26/24 04:00 Temperature Pulse Rate 74 68 Respiratory Rate Blood Pressure 174/74 H Pulse Oximetry 97 98 Oxygen Delivery Method Room Air Room Air 12/26/24 04:30 12/26/24 04:30 12/26/24 05:00 Temperature Pulse Rate 64 66 Respiratory Rate 18 Blood Pressure 163/72 H Pulse Oximetry 98 98 Oxygen Delivery Method Room Air 12/26/24 05:00 12/26/24 05:30 12/26/24 05:31 Temperature Pulse Rate 66 67 Respiratory Rate Blood Pressure 178/77 H Pulse Oximetry 95 95 Oxygen Delivery Method 12/26/24 05:31 12/26/24 06:26 12/26/24 06:28 Temperature Pulse Rate 44 L Respiratory Rate Blood Pressure 132/62 147/66 H Pulse Oximetry 96 Oxygen Delivery Method 12/26/24 06:28 12/26/24 06:30 12/26/24 06:30 Temperature Pulse Rate 65 66 Respiratory Rate Blood Pressure 133/63 Pulse Oximetry 95 95 Oxygen Delivery Method Room Air Room Air 12/26/24 07:00 12/26/24 07:00 Temperature Pulse Rate 66 Respiratory Rate Blood Pressure 151/70 H Pulse Oximetry 97 Oxygen Delivery Method Room Air Oxygen Delivery Method Room Air Const General: cooperative, well groomed and other (uncomfortable appearing ) Nutritional Appearance: obese Orientation: alert, awake and oriented x3 Limitations: mental status not altered HENMT Head: normal to inspection Resp Effort & Inspection: normal respiratory effort, able to speak in complete sentences and no audible wheezes Cardio Pulses: normal peripheral pulses GI Inspection: large pannus and obesity Palpation: firm and mass (LLQ, tender) Percussion: dullness to percussion and no fluid wave Auscultation: normal bowel sounds Other: deferred Skin General: no rashes or lesions noted Neuro General: patient alert, patient awake and patient oriented x3 Extrem General: normal to inspection Psych Mental Status: mental status grossly normal Judgment: judgment good Objective Imaging CT scan - pelvis: My impression: septated L adnexal mass with associated stranding Radiologist's impression: There is an 8 cm low-attenuation septated cystic mass in the left adnexal region with mild surrounding fat stranding/inflammation. Findings may represent ruptured hemorrhagic cyst, ovarian torsion, cystic neoplasm, and other etiologies. Recommend further characterization with pelvic ultrasound to include Doppler evaluation or exclusion of ovarian torsion. US pelvis: My impression: 8cm septated L adnexal mass, possible acoustic shadowing without definitive hypervascularity Radiologist's impression: Ovaries: Right ovary was not seen 3 normal right adnexa. Left ovary with likely reviewed placed by a complex multiloculated cystic mass containing internal debris treated low level internal echoes are present. No internal vascularity on color imaging. Normal arterial and venous flow noted in the periphery prick complex cystic mass measures in aggregate approximately 7.3 x 5.1 x 6.1 cm. Otherwise, normal bilateral adnexa. Other: No pathologic free abdominal or pelvic fluid. IMPRESSION: Left ovary is largely replaced by a complex multiloculated cystic mass containing low level internal echoes. No obvious more nodules or vascular component is identified. Given the sonographic appearance of the patient's age, recommend outpatient obstetric consultation an MRI of the pelvis with and without contrast. 1.8 cm subserosal posterior fibroid 3 nabothian cyst. Labs 12/26/24 02:25 12/26/24 02:25 Labs: Laboratory Results - last 24 hr 12/26/24 12/26/24 02:00 02:25 WBC 14.3 H RBC 4.59 Hgb 14.8 Hct 43.3 MCV 94.3 MCH 32.2 MCHC 34.1 RDW 13.4 Plt Count 312 Neut % (Auto) 79.7 H Lymph % (Auto) 10.1 L Pine % (Auto) 9.0 Eos % (Auto) 0.4 L Baso % (Auto) 0.8 Neut # (Auto) 39102 H Lymph # (Auto) 1400 Pine # (Auto) 1300 H Eos # (Auto) 100 Baso # (Auto) 100 Sodium 132 L Potassium 4.1 Chloride 101 Carbon Dioxide 21 L BUN 15 Creatinine 0.76 Estimated GFR > 60 BUN/Creatinine Ratio 19.7 Glucose 185 H Calcium 9.1 Total Bilirubin 0.6 AST 38 H ALT 50 H Alkaline Phosphatase 105 Total Protein 7.7 Albumin 4.5 Globulin 3.2 Albumin/Globulin Ratio 1.4 Lipase 47 Urine RBC 1-5/hpf Urine WBC 0-1/hpf Ur Squamous Epith Cells 1-5 /hpf Urine Bacteria Occasional (0-1) Urine Mucus 1+ H Ur Culture Indicated? Cult not indicated Vol Urine Centrifuged 10ml (spun) Assessment & Plan Assessment and plan (1) Complex cyst of left ovary: Status: Acute (2) Severe obesity (BMI >= 40): Status: Acute Plan 69yo nulliparous postmenopausal female presents with symptomatic L adnexal mass Symptomatic L adnexal mass ddx includes ovarian torsion, underlying malignancy, possible non-adnexal etiology (less likely) pt admitted to observation for serial abdominal exams, pain management CA 125 ordered patient counseled that in evangelical CA 125 results wnl than high likelihood of proceeding to OR today for diagnostic laparoscopy given presentation and need for IV pain control F: LR @ 70cc/hr E: no indication for repletion at this time N: NPO except for meds DVT ppx: SCDs, consider enoxaparin postop as indicated Dispo: admit to personal banking advisor observation, in-person hand-off/signout provided to on-call provider Dr. Shara Lawler who is assuming care of this patient Time-Based Coding :: [TOTAL MINUTES] spent with patient and on the chart (including review of chart, obtaining history, exam, reviewing outside data, placing orders, documenting exam and treatment plan, and counseling patient) on [DATE].
[2024-12-26] MEDS: LACTATED RINGERS 1,000 ML 70 ML IV (11:27)
[2024-12-26] MEDS: ACETAMINOPHEN IV 1,000 MG/100 ML VIAL 400 MG IV (11:58)
--- NOTE | 2024-12-26 12:25 | P.OP.PRE_ITS ---
Pre-operative Note
--- NOTE | 2024-12-26 12:25 | PM.PREOP ---
Pre-operative Note COVID-19 COVID-19 status: Not tested Interval Note History & Physical reviewed/Exam performed by Physician: Yes Changes to H&P: No H&P completed within 30 days and has changed as indicated here:: Patient admitted by Dr. Hickey. Reviewed pelvic US and CT scan results. Patient in significant acute pain requiring IV dilaudid for management. reviewed image findings and Ca 125 <5. There is concern for underlying malignancy but normal Ca 125 and otherwise no clear markers of malignancy on imaging are reassuring. Discussed ideally she would have a surgery in a hospital with frozen pathology and Custom Designer Onc available but considering her severe, acute pain will proceed with Bilateral salpingoophorectomy. Patient aware that if cancer is diagnosed on pathology she may require a second surgery. Patient understands this risk and possibility and desires to proceed with surgery now. Discussed plan for laparoscopic approach with bilateral salpingoophorectomy but considering the size and possible adhesions discussed the possibility of conversion to open laparotomy. reviewed risks of procedure including bleeding, pain, infection, injury to surrounding organ and tissues including the ureters, bladder, bowel. All questions answered and patient verbalizes understanding. Consent signed. Will proceed to OR when available. ASA Class (for procedural sedation): III
--- NOTE | 2024-12-26 15:52 | P.OP_ITS ---
Operative Date/Time/Diagnoses
--- NOTE | 2024-12-26 15:52 | PM.GYNOP.1 ---
Operative Date/Time/Diagnoses Date of procedure: 12/26/24 Time of procedure: 13:00 Pre-op diagnosis: Pelvic and abdominal Pain, Left adnexal mass Post-op diagnosis: other (Tubooavarian abscess of the left tube and ovary, chronic Pelvic inflammatory disease) Procedure & Clinicians Procedure: Procedures Operation Date: 12/26/24 12:00 Actual Procedure Side Surgeon p Laparoscopic bilateral salpingo-oophorectomy Bilateral Shara Lawler, Indications: Fox is a 69yo F that presented to the ER with severe pelvic pain that had been increasing over the last week but became intolerable and presented to the ER for evaluation. She received IV dilaudid which was managing the pain but requiring scheduled IV pain management. CT scan and pelvic US notable for a complex 8cm left adnexal mass. This was previously seen 3 years ago when an US was performed for left pelvic pain measuring ~3cm at that time. Ca 125 <5. There is concern for an underlying malignancy but considering patient severe pain will proceed to the OR for laparoscopic bilateral salpingoophorectomy. Fox counseled that if malignancy is diagnosed on pathology she may require a second surgery. Risks of procedure including bleeding, pain, infection, injury to surrounding organs/tissues including the ureters, bowel, bladder reviewed. all qyestions answered. patient desires to proceed. Surgeon: Shara Lawler Latex Foam Worker: David Osei Anesthesia Type: General Operative Notes Findings: Purulent fluid within peritoneal cavity noted in the pelvis, bowel and omental adhesions, intact bowel with no evidence of rupture (evaluated by general surgery), Enlarged left fallopian tube filled with purulent fluid and densely adhesed to the pelvic side wall. normal left ovary. Inflammed right fallopian tube with adhesions and evidence of salpingitis, normal right ovary. nonenlarged, mobile uterus. Closure Type: primary Specimen(s): left tube & ovary and right tube & ovary Applied: none Estimated blood loss (mL): 10 Blood products transfused: none Procedure in detail: The patient was taken to the operating room where general endotracheal anesthesia was induced. The patient was prepped and draped in the normal sterile fashion. The patient was placed in the lithotomy position in Vishnu Stirrups. Richard catheter was placed. The cervix was grasped with a single-toothed tenaculum. A HUMI uterine manipulator was inserted through the cervix for uterine manipulation. Subsequently, attention was turned to the laparoscopic part of the procedure. A 5mm skin incision was made 3cm above the umbilicus due to presumed size of pathology and patient body habitus. The veress needle was used and inraabdominall placement confirmed with an opening pessure <8mmhg. The abdomen was insufflated with carbon dioxide to 15mmhg. The veress needle was removed and the optiview trocar placed under visualization and the laparoscope was used to inspect the abdomen. The above findings were noted. At this point, two other 5 mm trocars were placed in the right lower quadrant and left lower quadrant under direct visualization.The purulent fluid in the pelvis and bowel adhesions were concerning for a possible bowel related etiology so general surgery was called into the room to assess. Omental adhesions taken down and bowel adhesions taken down to allow clear visualization of the pelvis and an enlarged, dilated left fallopian tube with draining purulent fluid confirmed a gynecologic source. There was notably bilateral salpingitis and a tuboovarian abscess noted on the left side consistent with a chronic pelvic inflammatory disease which ultimately developed into a tuboovarian abscess and rupture of the abscess likely leading to patient acute presentation to the ER. Subsequently, with the help of the 5 mm power seal device, the fallopian tube and ovaries on the patient?s left side was removed starting on the uteroovarian ligament and across the broad ligament and round ligament to the pelvic side wall to separate the fallopian tube from the pelvic side wall keeping a superficial dissection plane to avoid injury to the ureter. The infundibulopelvic ligament was cauterized and dissected and the entire left adnexal structure removed. The copious draining purulent fluid was collected and sent for culture. A 12mm incision was made in the suprapubic region and a trocar placed under direct visualization. An endocatch bag was introduced and the left fallopian tube and ovary placed in the bag and removed through the 12mm incision. Attention then turned to the right fallopian tube and ovary. Adhesions carefully lysed and the right fallopian tube and ovary removed with the power seal device careful to avoid injury to the ureter during transection of the infundibulopleivc ligament. Right fallopian tube and ovary removed though the 12mm port and sent to pathology. The pelvis was then irrigated with sterile fluid and all pedicles inspected for hemostasis. The gas was removed from the abdomen. The 12mm trocar and 5mm trocars were removed under direct visualization. The fascia of the 12mm incision was closed with 0 Vicryl suture in a running fashion and the skin was approximated with 4-0 Monocryl suture. Dermabond placed over the incisions. The humi manipulator was removed from the uterus. The patient tolerated the procedure well. Counts correct at the end of case. Complications: none Post-operative Condition: stable Disposition: PACU Plan for aftercare: admit to acute care unit for post op monitoring and pain management. considering infectious process diagnosed intraop will treat empirically for presumed pelvic inflammatory disease. Rocephin 1gm IV now + doxcycline 100mg BID + metronidazole 100mg BID. WIll adjust antibiotics based on peritoneal culture sensitivities to complete a 14 day course.
[2024-12-26] MEDS: KETOROLAC 30 MG/ML VIAL IV ×2 (17:18→23:33)
[2024-12-26] MEDS: LACTOBACILLUS ACIDOPHILUS TABLET 1 EACH PO (21:10)
[2024-12-26] MEDS: DOXYCYCLINE HYCLATE 100 MG TABLET PO (21:10)
[2024-12-26] MEDS: PRAVASTATIN 20 MG TABLET 10 MG PO (21:11)
[2024-12-26] MEDS: ACETAMINOPHEN 325 MG TABLET 650 MG PO (21:11)
[2024-12-26] MEDS: DOCUSATE 100 MG CAPSULE 200 MG PO (21:11)
[2024-12-27] MEDS: ACETAMINOPHEN 325 MG TABLET 650 MG PO ×3 (03:06→15:27)
[2024-12-27 05:32] VITALS: BP 138/61; PULSE 62; RESP 18; TEMP 36.9
[2024-12-27] MEDS: KETOROLAC 30 MG/ML VIAL IV (05:34)
[2024-12-27 08:20] LABS: Add Manual Diff / Slide Review NO; Hematocrit 38.4 % (36-46); Hemoglobin 13.3 g/dL (12.0-16.0); Lymphocytes Absolute Auto 1200 /uL (1100-4500); Mean Corpuscular HGB Conc 34.5 % (30-36); Mean Corpuscular Hemoglobin 32.4 PG (26-34); Mean Corpuscular Volume 93.7 fL (80-100); Platelet Count 254 X10^3/uL (150-400)
[2024-12-27 09:00] VITALS: BP 131/69; PULSE 62; RESP 16; TEMP 36.6; O2SAT 98
[2024-12-27] MEDS: DOCUSATE 100 MG CAPSULE 200 MG PO ×2 (09:01→20:59)
[2024-12-27] MEDS: FISH OIL 1,000 MG CAPSULE 2000 MG PO (09:02)
[2024-12-27] MEDS: DOXYCYCLINE HYCLATE 100 MG TABLET PO ×2 (09:02→20:59)
[2024-12-27] MEDS: LACTOBACILLUS ACIDOPHILUS TABLET 1 EACH PO ×2 (09:02→20:58)
[2024-12-27] MEDS: MULTIVITAMIN 1 TABLET 1 TAB PO (09:02)
[2024-12-27 11:00] VITALS: BP 118/82; PULSE 67; RESP 17; TEMP 36.8; O2SAT 100
[2024-12-27] MEDS: IBUPROFEN 600 MG TABLET PO ×2 (11:35→18:21)
--- NOTE | 2024-12-27 16:45 | PM.PNPO.1 ---
Subjective Subjective Date Patient Seen: 12/27/24 Time Patient Seen: 14:00 Interval history: Kanchan is postop day 1 from laparoscopic BSO due to bilateral tubo-ovarian abscesses. She feels far better than she did preop. She is slowly beginning to pass gas and is not experiencing any nausea and vomiting. She states she has not slept in at least 3 days due to the pain preop and now postop. She feels exhausted and has been able ambulate only a small amount to this point. She is not experiencing any vaginal bleeding but has had a few small clots when she urinates. Exam Vital Signs (past 8 hours): - 12/27/24 09:00 12/27/24 11:00 Temperature 98 F 98.3 F Pulse Rate 62 67 Respiratory Rate 16 17 Blood Pressure 131/69 118/82 Pulse Oximetry 98 100 Oxygen Delivery Method Room Air Const General: cooperative and comfortable Nutritional Appearance: average body habitus Orientation: alert and oriented x3 HENMT Head: normal to inspection, atraumatic and abrasion Ears: hearing grossly normal bilaterally Face and sinus: face symmetric Eyes General: appearance normal, both eyes and all related structures Conjunctivae: conjunctivae normal Sclera: sclerae normal EOM: EOM intact bilaterally Neck Neck: normal visual inspection Resp Effort & Inspection: normal respiratory effort and able to speak in complete sentences Auscultation: clear to auscultation bilaterally Cardio Rate: regular rate Rhythm: regular rhythm Heart Sounds: S1 normal, S2 normal and no murmurs GI Inspection: normal to inspection and incision (Surgical dressings clean and dry) Palpation: soft, no hepatosplenomegaly and tender (Mild, diffuse postsurgical tenderness) Auscultation: hypoactive bowel sounds External Female Exam: other (No significant bleeding noted) Extrem General: no calf tenderness Psych Appearance: grossly normal Mental Status: mental status grossly normal Speech and Movement: speech and movement normal Mood: congruent mood Affect: normal affect Attitude: cooperative Thought Process: normal Thought Content: normal Judgment: judgment good Objective Labs 12/27/24 08:09 12/26/24 02:25 Labs: Laboratory Results - last 24 hr 12/27/24 08:09 WBC 18.1 H RBC 4.10 Hgb 13.3 Hct 38.4 MCV 93.7 MCH 32.4 MCHC 34.5 RDW 13.5 Plt Count 254 Neut % (Auto) 84.0 H Lymph % (Auto) 6.8 L [place] % (Auto) 8.9 Eos % (Auto) 0.1 L Baso % (Auto) 0.2 Neut # (Auto) 86039 H Lymph # (Auto) 1200 [place] # (Auto) 1600 H Eos # (Auto) 0 Baso # (Auto) 0 PFSH Medical History (Updated 12/26/24 @ 07:07 by Anton Castro MD) Esophageal spasm BRAR (nonalcoholic steatohepatitis) Mixed hyperlipidemia Thyroid nodule Impaired fasting glucose Essential hypertension Primary osteoarthritis involving multiple joints Costochondral joint sprain Severe obesity (BMI >= 40) Multinodular non-toxic goiter Osteoarthritis, hip, bilateral Obstructive sleep apnea, adult (~2010) Surgical History History of right hip replacement Family History Mother Hypertension Heart disease Brother Sleep apnea Hypertension Social History household members: friend(s) Smoking Status: Never smoker Assessment & Plan Post-op Postoperative Procedures: Procedures Operation Date: 12/26/24 12:00 Actual Procedure Side Surgeon p Laparoscopic bilateral salpingo-oophorectomy with Lysis of Adhesions Bilateral Shara Lawler DO Postoperative day: 1 Postoperative status: doing well and other (Extreme fatigue due to lack of sleep and pain) Postoperative status narrative: Patient is doing reasonably well but feels too weak to ambulate any significant distance and feels as though she is too weak to go home at this point. I concur and patient will remain overnight tonight with hopes that she can be discharged tomorrow. G stain shows Gram-positive cocci but no identification or sensitivity has been published thus far. Postoperative plan: routine post-op care Postoperative plan narrative: Patient will remain in-house overnight with hopes that she will be strong enough to the discharge tomorrow. Time Spent With Patient Time with patient: 15-24 minutes Quality VTE Deep Vein Thrombosis/Pulmonary Embolism Present on Admission: No
[2024-12-27 17:57] VITALS: BP 138/60; PULSE 61; RESP 16; TEMP 37.1; O2SAT 98
[2024-12-27 21:00] VITALS: BP 155/81; PULSE 68; RESP 21; TEMP 36.5; O2SAT 98
[2024-12-27] MEDS: PRAVASTATIN 20 MG TABLET 10 MG PO (21:00)
--- NOTE | 2024-12-27 22:52 | PC.NURSE ---
2049- Report given to MAKAYLA Isaac in acute care. Patient will transfer to acute care floor via wheelchair.
[2024-12-28] MEDS: IBUPROFEN 600 MG TABLET PO ×3 (00:11→12:45)
--- NOTE | 2024-12-28 03:10 | PC.NURSE ---
Addendum entered by Antonella Boston RN 12/28/24 04:53: Patient transferred at 21:18 via wheelchair. Lap dressings covered with mepilex marie, CDI. Original Note: Patient transferred to from [facility].
[2024-12-28 08:00] VITALS: BP 138/75; PULSE 57; RESP 16; TEMP 36.3; O2SAT 96
[2024-12-28] MEDS: FISH OIL 1,000 MG CAPSULE 2000 MG PO (09:35)
[2024-12-28] MEDS: ACETAMINOPHEN 325 MG TABLET 650 MG PO (09:35)
[2024-12-28] MEDS: LACTOBACILLUS ACIDOPHILUS TABLET 1 EACH PO (09:36)
[2024-12-28] MEDS: DOCUSATE 100 MG CAPSULE 200 MG PO (09:37)
[2024-12-28] MEDS: MULTIVITAMIN 1 TABLET 1 TAB PO (09:37)
[2024-12-28] MEDS: DOXYCYCLINE HYCLATE 100 MG TABLET PO (09:37)
--- NOTE | 2024-12-28 13:24 | CM.DANOTE ---
Initial DCP Assessment Visit Note Reviewed EMR and team rounds for pt's medical status and updates. Met with pt and several of her friends at bedside to introduce self and role. Pt was found to be resting in bed, smiling, and visiting w/her friends. Pt resides independently in her own home with a friend. She is anticipated to be discharged today back home, her friends will transport. She declines any CM d/c assistance or resource needs at this time. Payor: Medicare PCP: Dr. Vegas Pt is a 69 year-old F who presented to the ED with c/o lower left abdominal pain that has been worsening for the last week. She had been told several years ago by a provider in [place] that she had a L-sided ovarian cyst. Dr. Hickey was consulted for OB Surgical consultation. Findings on imaging showed bilateral tubo-ovarian abcesses. Plan was made to make pt NPO and admit to OBS for surgery. Pt has done well postoperatively, pain is well controlled, and she is expressing readiness for home d/c. She will plan to f/u with OBGYN post-discharge. Discharge Planning/Care Management Advanced directive, confirm from FAMILY Start: 12/26/24 17:37 Freq: Q24H Status: Active Protocol: Document 12/27/24 17:37 (Rec: 12/27/24 22:49 [id number]) Advance Directive, confirm on record Time 21:30 Person contacted pt Copy received No CM Discharge Assessment Start: 12/26/24 07:30 Freq: Status: Active Protocol: Document 12/28/24 13:23 DPL (Rec: 12/28/24 13:24 DPL [id number]) Discharge Planning Assessment Assigned Discharge TRAE Sun Communication Spec Insurance Medicare Advance Directives? Yes Advance Directives No on File History Provided By Patient,Medical Record Has Patient been No admitted in last 30 days? Prior Living House Arrangements Household Members friend(s) Type of Drives own vehicle transporation used prior to admit Independent with ADL Yes 's Is patient alert and Yes oriented? Caregiver for No Another Comment N/A Comment N/A Comment Pt declines any d/c assistance or resource needs at this time. Barriers to No Discharge Discharge Plan Home Transportation Friend Arrangement Referrals Initiated None needed Whiteboard Updated Yes in Patient Room with name and ext. # of [place] Review Status In Process Please Provide Date 12/28/24 Initial DC Assessment Was Performed
--- NOTE | 2024-12-28 14:41 | P.DS_ITS ---
History of Present Illness
--- NOTE | 2024-12-28 14:41 | PM.DS.IH.1 ---
History of Present Illness History of Present Illness Date Patient Seen: 12/28/24 Time Patient Seen: 14:42 Date of Onset of Symptoms: 12/26/24 Chief complaint: Abdominal Pain, Nausea Discharge Providers Provider Date of admission: 12/26/24 06:56 Discharge Date: 12/28/24 Primary care physician: Gilberto Vegas MD Discharge provider: Shara Lawler DO Summary Hospital Course Discharge Diagnosis: Tuboovarian abscess with presumed PID Hospital Course: Patient is a 69yo postmenopausal female that presented to the ER on 12/26 with severe/worsening pelvic pain for the last week but worsening on 12/26 which prompted her visit to the ER. She was seen in the ER and pain managed with IV dilauded. CT scan and pelvic US were performed and noted a large left adnexal mass concerning. Due to size and complexity there was concern for neoplasm but Ca 125<5 and patient in acute pain with a surgical abdomen requiring surgical intervention. Decision made to proceed with exploratory laparoscopy and bilateral salpingoophorectomy. Patient had a Laparoscopic BSO with lysis of adhesions by general surgery due to bowel adhesions and inflammation. Diagnosis of tuboovarian abscess and pelvic inflammatory disease made due to purulent fluid within the peritoneum and source determined to be the left fallopiant tube with copious drainage of infected fluid from the enlarged fallopian tube consistent with a tuboovarian abscess. The right fallopian tube was noted to also be inflammed with evidence of salpingitis.. The bilateral salpingoophorectomy was perofrmed and the pelvis was washed with copious fluid and washings sent for culture. Patient did well post op and meeting post op milestones by POD1. Patient kept overnight to allow complete recovery from anesthesia and discharged home POD 2. peritoneal cultures returned with Streptococcus pneumoniae-- sensitive to tetracyclines. Will send patient home with doxycline 100gm PO BID to complete 14 days. Patient appears well with no evidnece of sepsis at this time. Her WBC increased to 18 post op which is expected. She is not tachycardic, afebrile and overall feels much improved from her presentation initially to the ER. Paitent stable for discharge home today. Rx Doxycycline sent top harmacy with motrin for pain and stool softener. f/u in 2wks for postop visit. Status at Discharge Cognitive/behavioral status at discharge: oriented Functional status at discharge: independent ambulation Overall status at discharge: patient is progressing back to baseline Time Spent with Patient Time spent: Less than 30 minutes Exam Vital Signs (past 8 hours): - 12/28/24 08:00 Temperature 97.3 F L Pulse Rate 57 L Respiratory Rate 16 Blood Pressure 138/75 Pulse Oximetry 96 Oxygen Flow Rate 0 Oxygen Delivery Method Room Air Oxygen Flow Rate 0 Narrative Exam Narrative: Gen- AAO x3, NAD abdomen- distended (similar to presenting ER visit exam)- baseline for patient, nontender incisions- intact, no drainage or erythema Objective Labs 12/27/24 08:09 12/26/24 02:25 [facility] Medical History (Updated 12/26/24 @ 07:07 by Anton Castro MD) Esophageal spasm BRAR (nonalcoholic steatohepatitis) Mixed hyperlipidemia Thyroid nodule Impaired fasting glucose Essential hypertension Primary osteoarthritis involving multiple joints Costochondral joint sprain Severe obesity (BMI >= 40) Multinodular non-toxic goiter Osteoarthritis, hip, bilateral Obstructive sleep apnea, adult (~2010) Surgical History History of right hip replacement Family History Mother Hypertension Heart disease Brother Sleep apnea Hypertension Social History household members: friend(s) Smoking Status: Never smoker Discharge Assessment & Plan Assessment and Plan Assessment: Fox is a 69yo F s/p Laparoscopic bilatearl salpingoophorectomy with lysis of adhesions on 12/26/24. Postop day 2 - doing well - meeting post op milestones - desires discharge home - no evidence of sepsis or signs of persisting infectious process at this time. - culture from peritoneal fluid - strep pneumoniae-- sensitive to tetracyclines - TOA and bilateral infection of fallopian tubes c/w pelvic inflammatory disease with presumed origin the system-- although this is rare there are cases in nonsexual adults. - plan to discharge home on doxycyline 100mg PO BID to ocmplete 14 day course - motrin/tylenol for pain control given strict precautions to return to the hospital including temp >100.4, worsening pain, nausea/vomiting. dispo- discharge home today, follwo up in 2wks in clinic for post op check Discharge Plan Discharge Plan Patient Disposition: Home Discharge orders & Medications Prescriptions: New doxycycline hyclate 100 mg Tablet 100 mg PO BID 12 Days Qty: 24 0RF ibuprofen 600 mg Tablet 600 mg PO Q6H 30 Days Qty: 120 0RF docusate sodium [Colace] 100 mg capsule 100 mg PO BID PRN (Reason: constipation) Qty: 20 1RF Continued pravastatin 10 mg tablet 10 mg PO BEDTIME Qty: 90 3RF nitroglycerin 0.4 mg tablet, sublingual 0.4 mg sublingual Q5M PRN (Reason: chest pain) Qty: 25 3RF Rx Instructions: do not exceed 3 doses per episode, call 911 if no relief after 3 tablets multivitamin Tablet 1 tab PO DAILY Saccharomyces boulardii [Daily Probiotic (S. boulardii)] 250 mg capsule 250 mg PO BID omega-3 fatty acids 1,250 mg capsule 2,500 mg PO DAILY (DME) [employer] Air[employer] 10 Auto See Rx Instructions .Route .MEDSUPPLY Rx Instructions: Pressure Min: 10 Max: 14 DME: [facility] Set up 8.3.21 Follow up/Referrals: Gilberto Vegas MD [Primary Care Provider, Internal Medicine] Diet/Activity/Treatments Diet: Diet as Tolerated and Regular Skin/Wound/Dressing Care Report to your healthcare provider any signs of infection, such as:: chills, fever, night sweats, increased pain, unusual drainage and unusual redness Visit Report/Discharge Packet Instructions: DI for Oophorectomy, DI for Laparoscopy Stand Alone Forms: Patient Portal/API, Stroke Signs & Symptoms, Surgery Discharge Discharge Data Primary Care Provider: Gilberto Vegas V Attending Provider: Teodora Hickey Admit Date/Time: 12/26/24 06:56 Quality VTE Deep Vein Thrombosis/Pulmonary Embolism Present on Admission: No IH PROFEE Charge Codes Discharge inpatient/observation: [id number]
[2024-12-28 15:21] VITALS: BP 150/77; PULSE 61; RESP 18; TEMP 36.6; O2SAT 96
== END 2024-12-28 15:42 | disposition home or self-care (01) ==
LOC: ED 02:11 → AC 06:58 → LABOR 15:25 → AC 12-27 21:18
PROVIDERS: Obstetrics & Gynecology; Admitting Provider Obstetrics & Gynecology; Emergency Provider Family Medicine; PCP Internal Medicine; Referring Provider Family Medicine; Visit Provider Obstetrics & Gynecology
PROC: 0UT24ZZ Resection of Bilateral Ovaries, Percutaneous Endoscopic Approach (ICD-10-PCS; CPT 58661; principal; 2024-12-26 12:00)
DX: N73.1 Chronic parametritis and pelvic cellulitis (principal); N70.93 Salpingitis and oophoritis, unspecified; K66.0 Peritoneal adhesions (postprocedural) (postinfection); E66.813 Obesity, class 3; E78.5 Hyperlipidemia, unspecified; Z68.41 Body mass index [BMI] 40.0-44.9, adult
CPT/HCPCS: 58661; 36415; 74177; 76830; 76856; 80053; 81003; 81015; 83690; 85025; 86304; 87070; 87075; 87077; 87186; 87205; 93976; 99284; G0378; A9270; J0131; J0689; J0696; J1100; J1171; J1885; J2405; J2704; J3010; J3490; J7030; J7050; J7120; Q9967